=== PATIENT | male | born 1955 | race Caucasian/White ===

== ENCOUNTER 2017-09-22 13:00 | Inpatient (IN) ==
[2017-09-22 16:21] LABS: Basophils # (Auto) 0 K/mcL (0.0-0.3); Basophils % (Auto) 0.2 % (0.0-2.0); Eosinophils # (Auto) 0.3 K/mcL (0.0-0.7); Eosinophils % (Auto) 2.9 % (0.0-7.0); Granulocytes % (Auto) 56.4 % (38.0-78.0); Lymphocytes # (Auto) 2.9 K/mcL (1.5-4.8); Mean Cell Volume 92.8 fL (80.0-100.0); Mean Corpuscular HGB Conc 34.4 g/dL (31.0-36.0); Mean Corpuscular Hemoglobin 31.9 pg (26.0-34.0); Monocytes # (Auto) 0.7 K/mcL (0.1-0.9); Monocytes % (Auto) 7.5 % (1.0-12.0); Platelet Count 217 K/mcL (140-440); RBC 4.23 M/mcL (4.50-5.90); Red Cell Distribution Width 14.7 % (11.5-14.5)
[2017-09-22 16:41] LABS: Blood Urea Nitrogen 26 mg/dl (8-23)
[2017-09-22 17:16] LABS: Appearance,Urine CLEAR; Bilirubin,Urine NEG (NEG); Color,Urine YELLOW; Glucose,Urine (UA) NEGATIVE (NEG); Leukocyte Esterase,Urine NEG /uL (NEG); Protein,Urine NEG (NEG); Urine Blood NEG mg/dL (<0.03); Urobilinogen,Urine NEG (NEG)
[2017-09-30] MEDS ORDERED: 0.9 % SODIUM CHLORIDE 9 ML, KETOROLAC 30 MG, ROPIVACAINE HCL/PF 49.5 ML, EPINEPHrine 0.... IJ SCH (07:00)
[2017-09-30] MEDS ORDERED: CELECOXIB 200 MG CAPSULE PO SCH (07:00)
[2017-09-30] MEDS ORDERED: ceFAZolin 1 GM VIAL IV SCH (07:00)
[2017-09-30] MEDS ORDERED: oxyCODONE 10 MG TAB.ER.12H PO SCH (07:00)
[2017-09-30] MEDS ORDERED: PREGABALIN 75 MG CAPSULE PO SCH (07:00)
[2017-09-30] MEDS ORDERED: TRANEXAMIC ACID 1,000 MG/10 ML VIAL IV ONE ×2 (11:20→13:02)
[2017-09-30] MEDS ORDERED: ROPIVACAINE HCL/PF 20 ML VIAL IJ ONE (11:20)
[2017-09-30] MEDS ORDERED: MIDAZOLAM 2 MG/2 ML VIAL IV ONE (11:20)
[2017-09-30] MEDS ORDERED: PROPOFOL 200 MG/20 ML VIAL IV ONE (11:20)
[2017-09-30] MEDS ORDERED: ONDANSETRON 4 MG/2 ML VIAL IV ONE (11:20)
[2017-09-30] MEDS ORDERED: GLYCOPYRROLATE 0.2 MG/ML VIAL IV ONE (11:20)
[2017-09-30] MEDS ORDERED: ePHEDrine 50 MG/ML AMPUL IV ONE (11:20)
[2017-09-30] MEDS ORDERED: KETAMINE 100 MG/ML ML IV ONE (11:20)
[2017-09-30] MEDS ORDERED: DEXAMETHASONE 10 MG/ML VIAL IV ONE (11:20)
[2017-09-30] MEDS ORDERED: LIDOCAINE HCL/PF 100 MG/5 ML SYRINGE IV ONE (11:20)
[2017-09-30] MEDS ORDERED: PHENYLEPHRINE 10 MG/ML VIAL IV ONE (11:20)
[2017-09-30] MEDS ORDERED: BISACODYL 10 MG SUPP.RECT PR PRN (13:02)
[2017-09-30] MEDS ORDERED: MAGNESIUM HYDROXIDE 30 ML ORAL.SUSP PO PRN (13:02)
[2017-09-30] MEDS ORDERED: FLEETS ADULT ENEMA PR PRN (13:02)
[2017-09-30] MEDS ORDERED: HYDROmorphone 2 MG/ML VIAL IV PRN (13:02)
[2017-09-30] MEDS ORDERED: ONDANSETRON 4 MG/2 ML VIAL IV PRN (13:02)
[2017-09-30] MEDS ORDERED: POLYETHYLENE GLYCOL 3350 17 GM PACKET PO PRN (13:02)
[2017-09-30] MEDS ORDERED: BENZOCAINE/MENTHOL 1 LOZENGE PO PRN (13:02)
--- NOTE | 2017-09-30 13:02 | Brief Operative Note ---
Date of procedure: 09/30/17 Pre-op diagnosis: R knee DJD Post-op diagnosis: same Procedure: Right robotic assisted total knee arthroplasty Grafts/Implants: Yes ([place] Triathlon CR 5 femur, 5 tibia, 9mm insert, 36 patella) Anesthesia: spinal, GLMA Findings: arthritis Complications: none Surgeon: Brenden Mario Supply Chain Procurement Manager: Caden Epps Estimated blood loss (cc): 30 Specimens Removed/Pathology: none sent Condition: stable Disposition: PACU
[2017-09-30] MEDS ORDERED: CARISOPRODOL 350 MG TABLET PO PRN (13:06)
--- NOTE | 2017-09-30 14:00 | XRay Report ---
CLINICAL INFORMATION: Postop total knee replacement COMPARISON: None. FINDINGS: Total knee prostheses is anatomically aligned. No osseous abnormality. Periarticular gas and soft tissue swelling noted. Old ununited fracture through the tibial tuberosity noted IMPRESSION: Negative Interpreted and Authenticated by: Alphonse Campoevrde 09/30/17
--- NOTE | 2017-09-30 14:09 | Operative Note ---
DATE OF OPERATION: 09/30/2017 PREOPERATIVE DIAGNOSIS: Right knee advanced osteoarthritis. POSTOPERATIVE DIAGNOSIS: Right knee advanced osteoarthritis. PROCEDURE PERFORMED: Right robotic-assisted total knee arthroplasty placing a [place] Triathlon size 5 cruciate retaining femoral component, size 5 tibial baseplate, 9 mm X3 tibial insert with a 36 mm patellar button. SURGEON: Brenden Mario MD SERVER SERVICE ASSISTANT: Grayson Epps PA-C ANESTHESIA: Spinal plus general. DRAINS: None. SPECIMENS: Bone cuts, which were discarded. BLOOD LOSS: Minimal. POSTOPERATIVE CONDITION: Stable. INDICATIONS FOR SURGERY: A 62-year-old male with knee pain. Radiographs showed on the standing notch view complete obliteration of the lateral joint space. FINDINGS AT SURGERY: He did have patellofemoral as well as lateral compartment wear. PROCEDURE IN DETAIL: The patient had been seen preoperatively. Informed consent had been obtained after discussion of risks, benefits of surgery. Risks including, but not limited to, bleeding; infection; injury to nerves, blood vessels other surrounding structures; anesthetic risks; incomplete or no resolution of symptoms; stiffness; swelling; pain; DVT and pulmonary embolus risks; and the possibility of needing further revision surgery. He understood these risks and wished to proceed. Correct operative site was marked and the patient was taken to the operating room after spinal anesthesia was given. LMA general was done and the right lower extremity was carefully prepped and draped in normal sterile fashion. A timeout was performed verifying patient name, operative site, and plan. Esmarch was used to exsanguinate the extremity and tourniquet was inflated. A midline incision was made with scalpel through skin and subcutaneous tissue. IrriSept was irrigated and then a medial parapatellar arthrotomy made. Subperiosteal exposure was done of the anterior medial tibia. Checkpoints were placed in the tibia and the femur. Two stab incisions were made over the femur and two over the tibia and bicortical pins placed and the arrays connected. Hip center of rotation was checked as well as medial and lateral malleoli with the green probe. Our femoral and tibial checkpoints were double checked and then a blue probe was used to do our mapping. We then removed any osteophytes and then checked our flexion, extension gaps. We adjusted the implant to try and get us at about 17 mm gaps medial and lateral in flexion and extension. We were within 1 mm of this so we went ahead and used the robotic arm to perform our bone cuts. After this is completed, the tibia was rotated externally as bone coverage would allow, pinned into place. Boss reamer and keel punch were used to prepare. We then elevated the femur and removed posterior osteophytes with a curved osteotome. Femoral trial was impacted and pinned and then a 9 insert trial was placed. This was very snug. We then prepared the patella freehand resecting and then medializing 36 as bone coverage would allow and then holes were drilled. The trial was placed, lateral facetectomy performed. We checked our patellar tracking, which was good, so we went ahead and removed trial implants while definitive implants were opened. Antibiotic cement was mixed while we irrigated the joint with IrriSept, after a minute pulse lavaged copiously with saline. CO2 gun was used to clean and dry cancellous bone surfaces and then we cemented the tibia followed by femur. A 9 insert trial was placed and then the knee was taken into extension and the patellar button cemented. We removed our checkpoints and then irrigated the joint with IrriSept. We removed our pins after verifying about 3 degrees short of full extension. We then injected pain cocktail into the pericapsular subcutaneous tissues. We then flexed the knee up, removed the insert trial after cement fully hardened and injected the posterior capsule. We irrigated with IrriSept again and impacted the definitive 9 mm insert. We then pulse lavaged copiously with saline. The knee was taken in about 45 degrees flexion. Interrupted #2 FiberWire [id number] were used around the superior quadrant of the patella, interrupted #1 Vicryl [id number] around the inferior quadrant, running #1 Vicryl for patellar tendon and quad tendon. Final IrriSept irrigation was done and then final saline, 2-0 Monocryl and rosalinda for skin. Xeroform sterile dressings were applied. Tourniquet was released. The patient was awakened, extubated, and transferred to recovery in stable condition. DARCIE:mehnaz Job ID: [id number] Doc ID: [id number] Brenden aMrio MD
[2017-09-30] MEDS: 0.9 % SODIUM CHLORIDE 1,000 ML IV SCH (14:28)
[2017-09-30] MEDS: 0.9 % SODIUM CHLORIDE 10 ML SYRINGE IV SCH ×2 (14:30→21:08)
[2017-09-30] MEDS: KETOROLAC 30 MG/ML VIAL IV SCH ×2 (17:10→23:09)
[2017-09-30] MEDS: oxyCODONE HCL 5 MG TABLET PO PRN ×2 (18:35→23:08)
[2017-09-30] MEDS ORDERED: POTASSIUM CHLORIDE 10 MEQ TABLET PO SCH (21:00)
[2017-09-30] MEDS ORDERED: FAMOTIDINE 20 MG TABLET PO SCH (21:00)
[2017-09-30] MEDS ORDERED: CHLORTHALIDONE 25 MG TABLET PO SCH (21:00)
[2017-09-30] MEDS ORDERED: LISINOPRIL 20 MG TABLET PO SCH (21:00)
[2017-09-30] MEDS ORDERED: SENNOSIDES 1 TABLET PO SCH (21:00)
[2017-09-30] MEDS ORDERED: ATORVASTATIN 20 MG TABLET PO SCH (21:00)
[2017-09-30] MEDS ORDERED: ALLOPURINOL 100 MG TABLET PO SCH (21:00)
[2017-09-30] MEDS: DOCUSATE SODIUM 100 MG CAPSULE PO SCH (21:05)
[2017-09-30] MEDS: ASPIRIN 325 MG ENTERIC COATED TABLET PO SCH (21:07)
[2017-09-30] MEDS: ceFAZolin 1 GM VIAL IV SCH (21:07)
[2017-10-01] MEDS: oxyCODONE HCL 5 MG TABLET PO PRN ×2 (03:00→06:42)
[2017-10-01] MEDS: KETOROLAC 30 MG/ML VIAL IV SCH (05:59)
[2017-10-01] MEDS: ceFAZolin 1 GM VIAL IV SCH (05:59)
[2017-10-01] MEDS: 0.9 % SODIUM CHLORIDE 10 ML SYRINGE IV SCH (05:59)
--- NOTE | 2017-10-01 07:45 | Discharge Summary ---
Providers - Providers Patient information: Note initiated : 10/01/17 at 7:43 am Service Date, if different from initiated Date: [] Patient: Manas Page 62 y/o M admitted on 09/30/17 for Right Total Knee Arthroplasty Abhijit. Chief Complaint: [] Discharge date: 10/01/17 Hospitalization Hospital course: Pt was admitted for a total knee arthroplasty. Pt was admitted on the day of the procedure and discharged on post-op day 1. Pt will take ASA for DVT prophylaxis. Will attend out-pt PT. f/u at [facility] in 2 weeks. Discharge diagnosis: L knee OA Exam - Exam Clean and dry: Yes Weight bearing status: as tolerated Ortho Discharge - TKA - Patient Instructions Diet: Regular Diet Activity: activity as tolerated Total Knee Protocol: For Total Knee: Start ROM JOJO with stationary bike or rocking chair. Work on gaining full extension of knee. Posterior dislocation precautions provided. Hip abductor strengthening and gait training instructions provided. Apply Cryocuff as instructed. Dressing Care: May shower in 2 days - Follow Up Plan Follow Up Appointments: Caden Epps PA-C [Physician Classification Officer] - 10/15/17 1:40 pm Disposition: Home, Self-Care Prognosis: Good Rehab Potential: Good Overall status at discharge: patient is progressing back to baseline - Orders For Discharge Prescriptions: Aspirin [Ecotrin] 325 mg PO BID #30 tab.ec Pending Studies Resuscitation Status Full Code Diet Consistent Carbohydrate Diet Start ThuSep 30 1303 Allopurinol (Zyloprim) 200 mg PO [facility] Last Admin: 09/30/17 21:07 Dose: 200 mg Aspirin (Ecotrin) 325 mg PO BID [facility] Last Admin: 09/30/17 21:07 Dose: 325 mg Atorvastatin Calcium (Lipitor) 20 mg PO [facility] Last Admin: 09/30/17 21:07 Dose: 20 mg Carisoprodol (Soma) 700 mg PO HSP PRN PRN Reason: Muscle Spasm Last Admin: 09/30/17 23:08 Dose: 700 mg Chlorthalidone (Hygroton) 25 mg PO [facility] Last Admin: 09/30/17 21:06 Dose: 25 mg Docusate Sodium (Colace) 100 mg PO BID [facility] Last Admin: 09/30/17 21:05 Dose: 100 mg Famotidine (Pepcid) 40 mg PO [facility] Last Admin: 09/30/17 21:07 Dose: 40 mg Hydromorphone HCl (Dilaudid) 0 mg IV Q2HP PRN PRN Reason: PAIN LEVEL > 6 Last Admin: 09/30/17 14:29 Dose: 1 mg Sodium Chloride (Sodium Chloride 0.9%) 1,000 mls @ 100 mls/hr IV .Q10H [facility] Last Admin: 10/01/17 00:00 Dose: Not Given Admin: 09/30/17 14:28 Dose: 100 mls/hr Ketorolac Tromethamine (Toradol) 30 mg IV Q6 [facility] Stop: 10/02/17 12:01 Last Admin: 10/01/17 05:59 Dose: 30 mg Admin: 09/30/17 23:09 Dose: 30 mg Admin: 09/30/17 17:10 Dose: 30 mg Lisinopril (Zestril) 20 mg PO [facility] Last Admin: 09/30/17 21:06 Dose: 20 mg Oxycodone HCl (Roxicodone) 0 mg PO Q4HP PRN PRN Reason: PAIN LEVEL 3-6 Last Admin: 10/01/17 06:42 Dose: 10 mg Admin: 10/01/17 03:00 Dose: 10 mg Admin: 09/30/17 18:35 Dose: 10 mg Potassium Chloride (Kdur) 10 meq PO [facility] Last Admin: 09/30/17 21:06 Dose: 10 meq Senna (Senokot) 2 tab PO [facility] Last Admin: 09/30/17 21:07 Dose: 2 tab Sodium Chloride (Saline Flush) 10 ml IV Q8 [facility] Last Admin: 10/01/17 05:59 Dose: Not Given Admin: 09/30/17 21:08 Dose: Not Given Admin: 09/30/17 14:30 Dose: Not Given Shift Summary 10/01/17 03:34 Shift Summary by Christian Connelly VSSy on RA. Asymptomatic HOTN t/o night. Up w/SBA, FWW and gait belt. Very steady on feet. Ambulated in halls past nurses station x2 last night. Would like to work w/PT and try stairs today. IV to left FA running NS @ 100mL/hr. Voiding per urinal and BR. Last PVR @ 0300 134mL. Dressing to right knee, CDI. Uses cryocuff. Foot pumps in place. Pain is well managed w/ scheduled Toradol and 10mg Oxycodone. Tolerating diet. Pleasant and cooperative w/cares. Hoping to discharge today. Initialized on 10/01/17 03:34 - END OF NOTE
[2017-10-01] MEDS: DOCUSATE SODIUM 100 MG CAPSULE PO SCH (07:58)
[2017-10-01] MEDS: ASPIRIN 325 MG ENTERIC COATED TABLET PO SCH (07:58)
[2017-10-01] MEDS ORDERED: FLUoxetine HCL 20 MG CAPSULE PO SCH (09:00)
[2017-10-01] MEDS ORDERED: VELPATASVIR PO SCH (09:00)
[2017-10-01] MEDS ORDERED: SOFOSBUVIR PO SCH (09:00)
[2017-10-01] MEDS: 0.9 % SODIUM CHLORIDE 1,000 ML IV SCH ×2 (10:19)
== END 2017-10-01 10:30 | disposition home or self-care (01) | DRG 470 ==
LOC: MEDSUR 09-30 07:47
PROVIDERS: ADMIT Orthopaedic Surgery; ATTEND Orthopaedic Surgery

== ENCOUNTER 2017-10-20 19:12 | Inpatient (IN) ==
[2017-10-20] MEDS ORDERED: 0.9 % SODIUM CHLORIDE 1,000 ML IV ONE ×2 (19:55→21:51)
--- NOTE | 2017-10-20 20:02 | Emergency Department Note ---
Skin/Abscess/FB HPI - General Chief complaint: Skin/Abscess/Foreign Body Stated complaint: Post surgical infection Time Seen by Provider: 10/20/17 19:25 Source: patient Mode of arrival: ambulatory Limitations: no limitations - History of Present Illness HPI Narrative: 62-year-old male presents with feeling poorly and feverish since discovering he has an infection of his postop knee. He had a knee replacement on the first of this month and noticed in the last couple of days it has gotten red. He saw his primary care provider in [place] who called Dr. Mario who did his surgery. They gave him a shot yesterday and he has been taking Keflex today. He states he is feeling worse today and feels feverish. He states that the swelling and redness is not necessarily worse but may be on the lateral aspect. He states it is painful. When he is triaged his temp was 98.7 but now its 100.2. He is also anxious because he does not know what to do about his infection. He has been taking the antibiotics as directed. He is not diabetic. - Related Data Home Medications Medication Instructions Recorded Confirmed Allopurinol [Zyloprim] 200 mg PO HS 09/22/17 10/20/17 Atorvastatin [Lipitor] 20 mg PO HS 09/22/17 10/20/17 Carisoprodol [Soma] 700 mg PO HSP PRN 09/22/17 10/20/17 Chlorthalidone [Hygroton] 25 mg PO HS 09/22/17 10/20/17 FLUoxetine HCL [Prozac] 20 mg PO DAILY 09/22/17 10/20/17 Famotidine [Pepcid] 40 mg PO HS 09/22/17 10/20/17 Hydrocodone/APAP 7.5/325Mg [Dinosaur 1 tab PO Q6-8HP PRN 09/22/17 10/20/17 7.5-325Mg] Lisinopril [Zestril] 20 mg PO HS 09/22/17 10/20/17 Potassium Chloride [Klor-Con 10] 10 meq PO HS 09/22/17 10/20/17 Sofosbuvir/Velpatasvir [Epclusa 1 tab PO DAILY 09/22/17 10/20/17 400 mg-100 mg Tablet] Previous Rx's Medication Instructions Recorded Aspirin [Ecotrin] 325 mg PO BID #30 tab.ec 10/01/17 Allergies Allergy/AdvReac Type Severity Reaction Status Date / Time Penicillins AdvReac Mild Vomiting Verified 09/22/17 13:26 Review of Systems All systems ED: reviewed and negative except as stated. Past Medical History - Past Medical History Medical history: Reports: hypertension Psychiatric history: Reports: no psych history Surgical history ED: Reports: knee replacement (Right knee replacement on 09/30/17 ) Family history: Reports: non-contributory - Social History smoking status: Former smoker Physical Exam Limitations: no limitations General appearance: alert, in no apparent distress Head: atraumatic Eye: Present: normal appearance. Absent: conjunctival injection Neck: Present: normal inspection, full ROM Chest: Present: normal inspection, symmetric chest wall rise Respiratory: Present: normal lung sounds bilaterally Cardiovascular: Present: tachycardia, normal heart sounds Abdominal: Present: soft, normal bowel sounds. Absent: tenderness Extremities: Present: other (Right knee shows erythema measuring 20 x 25 cm. Small effusion. Tender to palpation. Very warm to touch. There is serous drainage from the incision. Steri-Strips are still in place but look dirty) Neurological: Present: alert, oriented X3 Psychiatric: Present: normal affect, normal mood Skin: Present: warm, dry, intact Course - Reevaluation(s) Reevaluation #1: Elevated white count of 14,000. Patient continues to have a fever of 100.9. Patient was given [address] Montesinos was given report and will continue care of this patient and consult with Dr. Mario. Vital Signs Temperature 98.1 F 10/20/17 19:12 Pulse Rate 84 10/20/17 19:12 Respiratory Rate 18 10/20/17 19:12 Blood Pressure 105/72 10/20/17 19:12 Pulse Oximetry (%) 99 10/20/17 19:12 Temperature 100.9 F H 10/20/17 21:36 Pulse Rate 103 H 10/20/17 21:46 Respiratory Rate 18 10/20/17 19:12 Blood Pressure 125/95 10/20/17 21:46 Pulse Oximetry (%) 95 10/20/17 21:46 Skin/Abscess/Foreign Body - Lab Data Lab results reviewed: Yes I reviewed the patient's lab results. Result diagrams: 10/20/17 20:04 10/20/17 20:04 Lab Results 10/20/17 10/20/17 Range/Units 20:04 20:04 WBC 14.7 H (4.5-11.0) K/mcL RBC 4.65 (4.50-5.90) M/mcL Hgb 13.9 (13.5-16.5) g/dL Hct 41.3 (41.0-55.0) % MCV 88.7 (80.0-100.0) fL MCH 29.9 (26.0-34.0) pg MCHC 33.7 (31.0-36.0) g/dL RDW 13.8 (11.5-14.5) % Plt Count 268 (140-440) K/mcL MPV 8.2 (7.4-10.4) fL Gran % 75.8 (38.0-78.0) % Lymph % (Auto) 14.2 L (15.5-49.0) % [place] % (Auto) 8.5 (1.0-12.0) % Eos % (Auto) 0.7 (0.0-7.0) % Baso % (Auto) 0.8 (0.0-2.0) % Gran # 11.2 H (1.8-8.0) K/mcL Lymph # (Auto) 2.1 (1.5-4.8) K/mcL [place] # (Auto) 1.2 H (0.1-0.9) K/mcL Eos # (Auto) 0.1 (0.0-0.7) K/mcL Baso # (Auto) 0.1 (0.0-0.3) K/mcL Sodium 138 (133-145) mmol/L Potassium 3.6 (3.3-5.1) mmol/L Chloride 96 (96-108) mmol/L Carbon Dioxide 26 (22-30) mmol/L Anion Gap 16.0 (8-16) BUN 18 (8-23) mg/dl Creatinine 1.5 H (0.7-1.2) mg/dl GFR Calculation 49 Glucose 100 (70-105) mg/dL Calcium 9.6 (8.6-10.4) mg/dl Total Bilirubin 0.4 (0.0-1.0) mg/dL AST 22 (0-37) U/l ALT 23 (0-40) U/l Alkaline Phosphatase 83 (39-117) U/L C-Reactive Protein 6.5 H (0.0-0.8) mg/dl Total Protein 8.6 H (5.9-8.4) gm/dL Albumin 4.4 (3.2-5.2) gm/dL Globulin 4.2 H (2.2-3.7) gm/dL Albumin/Globulin Ratio 1.0 (1.0-2.3) Disposition Pt seen by STRUCTURED CABLING TECHNICIAN/PA only: No Disposition: Still a Patient Referrals: Hank Garcia, PABereniceC [Primary Care Provider] -
[2017-10-20] MEDS ORDERED: LEVOFLOXACIN 500 MG/100 ML BAG IV ONE (20:17)
[2017-10-20] MEDS ORDERED: ACETAMINOPHEN 325 MG TABLET PO ONE (20:39)
[2017-10-20 21:22] LABS: Basophils # (Auto) 0.1 K/mcL (0.0-0.3); Basophils % (Auto) 0.8 % (0.0-2.0); Eosinophils # (Auto) 0.1 K/mcL (0.0-0.7); Eosinophils % (Auto) 0.7 % (0.0-7.0); Granulocytes % (Auto) 75.8 % (38.0-78.0); Lymphocytes # (Auto) 2.1 K/mcL (1.5-4.8); Lymphocytes % (Auto) 14.2 % (15.5-49.0); Mean Cell Volume 88.7 fL (80.0-100.0); Mean Corpuscular HGB Conc 33.7 g/dL (31.0-36.0); Mean Corpuscular Hemoglobin 29.9 pg (26.0-34.0); Monocytes # (Auto) 1.2 K/mcL (0.1-0.9); Monocytes % (Auto) 8.5 % (1.0-12.0); Platelet Count 268 K/mcL (140-440); RBC 4.65 M/mcL (4.50-5.90); Red Cell Distribution Width 13.8 % (11.5-14.5)
[2017-10-20 21:39] LABS: ALT/SGPT 23 U/l (0-40); Albumin 4.4 gm/dL (3.2-5.2); Alkaline Phosphatase 83 U/L (39-117); Blood Urea Nitrogen 18 mg/dl (8-23); C-Reactive Protein 6.5 mg/dl (0.0-0.8)
[2017-10-20 22:00] LABS: Erythrocyte Sedimentation Rate 54 mm/hr (0-15)
--- NOTE | 2017-10-20 23:16 | Emergency Department Note ---
General Adult HPI - General Chief complaint: Skin/Abscess/Foreign Body Stated complaint: Post surgical infection Time Seen by Provider: 10/20/17 19:25 Source: patient Mode of arrival: ambulatory Limitations: no limitations - History of Present Illness HPI Narrative: I saw this patient with Amie Palm PA-C and agree with her evaluation management documentation. Please see her note. I initially evaluated the patient with her and discussed his care with her. However his workup was not done by shift change and so patient was handed off to me for full care then Basically the patient had a right knee replacement at the beginning of the month and went home after an uncomplicated recovery. Over the last several days he developed red hot swollen knee and today his neighbor may have come to the hospital-in fact drove him personally to the hospital. He has had a fever and chills. Knee is painful swollen and draining serous fluid. He is on Keflex from his primary care - Related Data Home Medications Medication Instructions Recorded Confirmed Allopurinol [Zyloprim] 200 mg PO HS 09/22/17 10/20/17 Atorvastatin [Lipitor] 20 mg PO HS 09/22/17 10/20/17 Carisoprodol [Soma] 700 mg PO HSP PRN 09/22/17 10/20/17 Chlorthalidone [Hygroton] 25 mg PO HS 09/22/17 10/20/17 FLUoxetine HCL [Prozac] 20 mg PO DAILY 09/22/17 10/20/17 Famotidine [Pepcid] 40 mg PO HS 09/22/17 10/20/17 Hydrocodone/APAP 7.5/325Mg [[place] 1 tab PO Q6-8HP PRN 09/22/17 10/20/17 7.5-325Mg] Lisinopril [Zestril] 20 mg PO HS 09/22/17 10/20/17 Potassium Chloride [Klor-Con 10] 10 meq PO HS 09/22/17 10/20/17 Previous Rx's Medication Instructions Recorded Aspirin [Ecotrin] 325 mg PO BID #30 tab.ec 10/01/17 Allergies Allergy/AdvReac Type Severity Reaction Status Date / Time Penicillins AdvReac Mild Vomiting Verified 09/22/17 13:26 Past Medical History - Past Medical History Medical history: Reports: hypertension Psychiatric history: Reports: no psych history Surgical history ED: Reports: knee replacement (Right knee replacement on 09/30/17 ) - Social History smoking status: Former smoker Physical Exam Exam of the right knee shows a red area around the wound site with serous drainage coming from the incision middle. Steri-Strips are still in place. Pushing on the incision actually releases more purulent fluid and this is cultured. He is able to move that knee joint without difficulty Limitations: no limitations General appearance: alert, in no apparent distress Course Vital Signs Temperature 98.1 F 10/20/17 19:12 Pulse Rate 84 10/20/17 19:12 Respiratory Rate 18 10/20/17 19:12 Blood Pressure 105/72 10/20/17 19:12 Pulse Oximetry (%) 99 10/20/17 19:12 Temperature 98.2 F 10/21/17 04:00 Pulse Rate 75 10/21/17 04:00 Respiratory Rate 20 10/21/17 04:00 Blood Pressure 120/79 10/21/17 04:00 Pulse Oximetry (%) 94 10/21/17 04:00 Procedures - Joint Aspiration/Injection Joint Aspiration/Injection 1 Consent Obtained: verbal consent Time Out Performed: Yes Side of body: right Joint Aspirated: knee Ultrasound Guidance: No Skin Prep: other (Alcohol) Local Anesthetic: lidocaine 1% Amount of anesthesia used (mL): 2 Needle Size Used: 22G Fluid Obtained: turbid Total Fluid Obtained (mls): 20 Patient Tolerated Procedure: well Complications: none Additional Comments: Per Dr. Mario's recommendations. Aspirated prostatic joint from a medial inferior angle with spinal needle. Obtained 20 mL turbid brown fluid-reddish. Sent for culture and Gram stain Medical Decision Making - Medical Records Medical records reviewed: Yes I reviewed the patient's medical records. - Lab Data Lab results reviewed: Yes I reviewed the patient's lab results. Result diagrams: 10/20/17 20:04 10/20/17 20:04 Lab Results 10/20/17 10/20/17 10/20/17 Range/Units 20:04 20:04 20:04 WBC 14.7 H (4.5-11.0) K/mcL RBC 4.65 (4.50-5.90) M/mcL Hgb 13.9 (13.5-16.5) g/dL Hct 41.3 (41.0-55.0) % MCV 88.7 (80.0-100.0) fL MCH 29.9 (26.0-34.0) pg MCHC 33.7 (31.0-36.0) g/dL RDW 13.8 (11.5-14.5) % Plt Count 268 (140-440) K/mcL MPV 8.2 (7.4-10.4) fL Gran % 75.8 (38.0-78.0) % Lymph % (Auto) 14.2 L (15.5-49.0) % [place] % (Auto) 8.5 (1.0-12.0) % Eos % (Auto) 0.7 (0.0-7.0) % Baso % (Auto) 0.8 (0.0-2.0) % Gran # 11.2 H (1.8-8.0) K/mcL Lymph # (Auto) 2.1 (1.5-4.8) K/mcL [place] # (Auto) 1.2 H (0.1-0.9) K/mcL Eos # (Auto) 0.1 (0.0-0.7) K/mcL Baso # (Auto) 0.1 (0.0-0.3) K/mcL ESR 54 H (0-15) mm/hr VBG Lactic Acid 1.0 (0.5-2.2) mmol/L Sodium 138 (133-145) mmol/L Potassium 3.6 (3.3-5.1) mmol/L Chloride 96 (96-108) mmol/L Carbon Dioxide 26 (22-30) mmol/L Anion Gap 16.0 (8-16) BUN 18 (8-23) mg/dl Creatinine 1.5 H (0.7-1.2) mg/dl GFR Calculation 49 Glucose 100 (70-105) mg/dL Calcium 9.6 (8.6-10.4) mg/dl Total Bilirubin 0.4 (0.0-1.0) mg/dL AST 22 (0-37) U/l ALT 23 (0-40) U/l Alkaline Phosphatase 83 (39-117) U/L C-Reactive Protein 6.5 H (0.0-0.8) mg/dl Total Protein 8.6 H (5.9-8.4) gm/dL Albumin 4.4 (3.2-5.2) gm/dL Globulin 4.2 H (2.2-3.7) gm/dL Albumin/Globulin Ratio 1.0 (1.0-2.3) - Radiology Data Radiology results reviewed: Yes I reviewed the patient's radiology results. X-ray shows knee prosthetic in good placement Disposition Pt seen by CARDIOLOGY SPECIALIST/PA only: No Clinical Impression: Infected prosthetic knee joint Qualifiers: Encounter type: initial encounter Qualified Code(s): T84.59XA - Infection and inflammatory reaction due to other internal joint prosthesis, initial encounter Summary: Discussed findings with Dr. Mario who advised me to start vancomycin and bring patient into the hospital. We previously started Levaquin Per recommendations kept him n.p.o. for possible operative treatment and wrote holding orders with pain management, IV fluids. I continue his allopurinol because we do not want a gout flare from stopping this. Dr. Arias the hospitalist was consulted as well Patient was admitted for an infected prosthetic right knee Disposition: Xfer As Inpt ([facility]) Condition: Serious
[2017-10-20] MEDS ORDERED: ONDANSETRON 4 MG/2 ML VIAL IV PRN (23:58)
[2017-10-21] MEDS ORDERED: VANCOMYCIN PER PHARMACY IV ONE (00:02)
[2017-10-21] MEDS ORDERED: VANCOMYCIN 1,000 MG in 0.9 % SODIUM CHLORIDE 250 ML IV ONE (00:02)
[2017-10-21] MEDS ORDERED: HYDROCODONE/APAP 7.5/325MG TABLET PO ONE (00:03)
[2017-10-21] MEDS: 0.9 % SODIUM CHLORIDE 1,000 ML IV SCH ×3 (00:40→21:30)
[2017-10-21] MEDS: FLUoxetine HCL 20 MG CAPSULE PO SCH (07:12)
[2017-10-21 08:16] LABS: Total Cell Count Body Fld 100
[2017-10-21 08:18] LABS: Appearance, Body Fluid CLEAR; Color, Body Fluid DARK YELLOW; Nucleated Cells,Body Fld 772 /cumm
--- NOTE | 2017-10-21 08:21 | XRay Report ---
HISTORY: Knee pain and erythema and drainage from the surgical site following recent knee replacement FINDINGS: There is a large amount soft tissue swelling anterior to the knee. Postsurgical gas which was seen around the knee on the postoperative x-ray done on 09/30/17 has resolved. There is no evidence of residual gas in the soft tissues at this time. There may be a small suprapatellar joint effusion. The alignment at the patella with the femur has changed. The inferior margin is angulated ventrally. The prosthesis otherwise appears normal and there is no reabsorption of bone around the hardware. The fat in the infrapatellar fat pad appears infiltrated. IMPRESSION: Significant cellulitis along the anterior border of the knee which may be extending into the infrapatellar fat pad Mild malalignment of the femur and patella which raises the possibility of disruption of the infrapatellar tendon Interpreted and Authenticated by: Ruben Pearl 10/21/17
[2017-10-21 08:25] LABS: Mean Cell Volume 89.8 fL (80.0-100.0); Mean Corpuscular HGB Conc 34.2 g/dL (31.0-36.0); Mean Corpuscular Hemoglobin 30.8 pg (26.0-34.0); Platelet Count 205 K/mcL (140-440); RBC 3.49 M/mcL (4.50-5.90); Red Cell Distribution Width 14.4 % (11.5-14.5)
[2017-10-21 08:45] LABS: Lymphocytes % 24 % (15-49); Monocytes % (Manual) 10 % (1-12); Platelet Estimate NORMAL (NORMAL); RBC Morphology NORMAL (NORMAL); Segmented Neutrophils % 66 % (38-78)
[2017-10-21] MEDS ORDERED: [UNRECOGNIZED DRUG - OTHER] PO SCH (09:00)
[2017-10-21] MEDS ORDERED: VELPATASVIR PO SCH (09:00)
[2017-10-21] MEDS ORDERED: SOFOSBUVIR PO SCH (09:00)
--- NOTE | 2017-10-21 10:43 | Internal Medicine Consult Note ---
Medical - CN: HPI - Data of Consult Consult date: 10/21/17 Requesting Physician: Brenden Mario Primary Care Provider: Hank Garcia Family Provider: [place] Martinez - Consult Narrative Reason for consult: Medical management of chr medical issues. History of present illness: Mr. Page is a 62 year old M with h/o recent Right TKA by Dr Mario approx 3 weeks ago. The patient was participating in PT and over the last few days he had noted increased erythema and swelling in the right knee. There has been increased pain, and decreased activity. The patient was started on po Keflex as outpatient, one injection given? the patients condition continued to worsen, yesterday he had fever chills, weakness fatigue, and was brought to the ER by his neighbor for further evaluation. The patient was admitted to ortho service with concern for post operative septic joint. Medicine is consulted for medical management of chr medical issues. The patient has h/o cad had CA in the 1989, he has not had any chest pain, swelling in the legs, dizziness of palpiations. He has h/o HTN/ HLD which are being managed with medications He has h/o gout, on allopurinol for same. The patient denies any active medical concerns at this time. CC: Brenden Mario Review of systems: CONSTITUTIONAL: No weight loss, Present - fever, chills, weakness or fatigue. HEENT: Eyes: No visual loss, blurred vision, double vision or yellow sclerae. Ears, Nose, Throat: No hearing loss, sneezing, congestion, runny nose or sore throat. SKIN: No rash or itching. CARDIOVASCULAR: No chest pain, chest pressure or chest discomfort. No palpitations or edema. RESPIRATORY: No shortness of breath, cough or sputum. GASTROINTESTINAL: No nausea, vomiting or diarrhea or constipation. No abdominal pain or blood in stools No Pati. GENITOURINARY: Denies Burning on urination. Blood in urine, or foul smelling urine NEUROLOGICAL: No headache, dizziness, syncope, paralysis, tremors, numbness or tingling in the extremities. No change in bowel or bladder control. MUSCULOSKELETAL: No muscle, back pain, joint pain or stiffness., RIght knee swollen, erythematous HEMATOLOGIC: No bleeding or bruising. No enlarged nodes PSYCHIATRIC: No depression or anxiety. ENDOCRINOLOGIC: No reports of sweating, cold or heat intolerance. No polyuria or polydipsia. ALLERGIES: No hives, eczema or rhinitis. Skin: No rash, no jaundice, cyanosis or pallor. Medical - CN: PMH Medical history: HTN Gout HLD h/o CAD H/o HEP C Surgical history: Right knee replacement december 01 2017 Family history: reviewed and not pertinent Social history: denies activ smoking, ex tobacco user no active etoh or recreatioal drugs. Medical - CN: Meds Home Medications Medication Instructions Recorded Confirmed Type Allopurinol [Zyloprim] 200 mg PO HS 09/22/17 10/20/17 History Atorvastatin [Lipitor] 20 mg PO HS 09/22/17 10/20/17 History Carisoprodol [Soma] 700 mg PO HSP PRN 09/22/17 10/20/17 History Chlorthalidone [Hygroton] 25 mg PO HS 09/22/17 10/20/17 History FLUoxetine HCL [Prozac] 20 mg PO DAILY 09/22/17 10/20/17 History Famotidine [Pepcid] 40 mg PO HS 09/22/17 10/20/17 History Hydrocodone/APAP 7.5/325Mg [[place] 1 tab PO Q6-8HP PRN 09/22/17 10/20/17 History 7.5-325Mg] Lisinopril [Zestril] 20 mg PO HS 09/22/17 10/20/17 History Potassium Chloride [Klor-Con 10] 10 meq PO HS 09/22/17 10/20/17 History Aspirin [Ecotrin] 325 mg PO BID #30 tab.ec 10/01/17 10/20/17 Rx Allergies Allergy/AdvReac Type Severity Reaction Status Date / Time Penicillins AdvReac Mild Vomiting Verified 09/22/17 13:26 Medical - CN: Exam - Constitutional Vitals: Temp Pulse Resp BP Pulse Ox 98.6 F 78 20 122/79 97 10/21/17 08:00 10/21/17 08:00 10/21/17 08:00 10/21/17 08:00 10/21/17 08:00 Exam: GENERAL: The patient is a well-developed, well-nourished in no apparent distress. Is alert and oriented x3. VITAL SIGNS: Reviewed and as noted elsewhere. HEENT: Head is normocephalic and atraumatic. Extraocular muscles are intact. Pupils are equal, round, and reactive to light. Nares appeared normal. Mouth appears any without lesions. Mucous membranes are moist. NECK: Normal to inspection, Supple, No lymphadenopathy or thyromegaly. LUNGS: Air entry equal on both sides, no wheezing, crackles or rhonchi noted. No accessory muscles of respiration HEART: Regular rate and rhythm normal, S1 and S2 heard, no Gallop, S3 or Rub Noted, No Gross murmur heard. ABDOMEN: Soft, nontender, and nondistended. Positive bowel sounds. No hepatosplenomegaly was noted. EXTREMITIES: No cyanosis, clubbing, rash, lesions or edema. right knee has midlline incision, erythema extending from above the knee to the upper part leg. Tender to palpate, effusion present. NEUROLOGIC: Cranial nerves II through XII are grossly intact. Motor and Sensory System Grossly Intact PSYCHIATRIC: Normal affect, Normal Mood. Appropriate Behavior. SKIN: No ulceration or wounds noted, No jaundice, No rash noted. Medical - CN: Result - Labs CBC & Chem 7: 10/21/17 07:45 10/20/17 20:04 Labs: Short CBC 10/20/17 10/21/17 Range/Units 20:04 07:45 WBC 14.7 H 12.2 H (4.5-11.0) K/mcL Hgb 13.9 10.7 L (13.5-16.5) g/dL Hct 41.3 31.3 L (41.0-55.0) % Plt Count 268 205 (140-440) K/mcL BMP 10/20/17 20:04 Sodium 138 Potassium 3.6 Chloride 96 Carbon Dioxide 26 BUN 18 Creatinine 1.5 H Glucose 100 Calcium 9.6 Liver Function 10/20/17 Range/Units 20:04 Total Bilirubin 0.4 (0.0-1.0) mg/dL AST 22 (0-37) U/l ALT 23 (0-40) U/l Alkaline Phosphatase 83 (39-117) U/L Albumin 4.4 (3.2-5.2) gm/dL Medical - CN: A/P - Narrative A/P Narrative: A/P Septic Arthritis/ Vs Cellulitis- Post op complication from recent surgery, on IV vancomycin as per ortho. Would add Rocephin coverage for now. Management as per Ortho team. 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 Dr Severino is the new infectious disease insurance healthcare consultant. Gout- Chr issue, on allopurinol, will resume same. Check crystals in the joint fluid if possible HTN- BP well controlled, on chlorthalidone and lisinopril, continue same, labs stable HLD on statin, continue same CAD- No CP reported, on ASA for DVT prophylaxis per ortho, would benefit from baby aspirin after he finishes his high does asprin regime. hep C- he has finised treatment for hep c recently, will follow up with his GI doc. The patients medical issues are stable at this time, no active intervention warranted. Management predominantly driven by ortho given this is a post op complication from recent surgery. Will follow peripherally, while the patient is in the hospital. Can be discharged when deemed stable from orthopedic stand point. Thanks for allowing me to participate in the care of the patient.
[2017-10-21] MEDS ORDERED: VANCOMYCIN PER PHARMACY IV SCH (10:46)
[2017-10-21] MEDS: cefTRIAXone 2 GM VIAL IV SCH (11:28)
[2017-10-21] MEDS ORDERED: HYDROCODONE/APAP 7.5/325MG TABLET PO PRN (14:28)
[2017-10-21] MEDS ORDERED: CARISOPRODOL 350 MG TABLET PO PRN (14:28)
[2017-10-21] MEDS: HYDROCODONE/APAP 7.5/325MG TABLET PO PRN ×2 (15:40→20:18)
[2017-10-21] MEDS: VANCOMYCIN 1,500 MG in 0.9 % SODIUM CHLORIDE 500 ML IV SCH (16:08)
[2017-10-21] MEDS: CHLORTHALIDONE 25 MG TABLET PO SCH (20:15)
[2017-10-21] MEDS: ASPIRIN 325 MG ENTERIC COATED TABLET PO SCH (20:15)
[2017-10-21] MEDS: POTASSIUM CHLORIDE 10 MEQ TABLET PO SCH (20:15)
[2017-10-21] MEDS: ATORVASTATIN 20 MG TABLET PO SCH (20:16)
[2017-10-21] MEDS: FAMOTIDINE 20 MG TABLET PO SCH (20:17)
[2017-10-21] MEDS: LISINOPRIL 20 MG TABLET PO SCH (20:18)
[2017-10-21] MEDS: ALLOPURINOL 100 MG TABLET PO SCH (20:18)
[2017-10-21] MEDS ORDERED: FAMOTIDINE 20 MG TABLET PO SCH (21:00)
[2017-10-21] MEDS ORDERED: LISINOPRIL 20 MG TABLET PO SCH (21:00)
[2017-10-21] MEDS ORDERED: ATORVASTATIN 20 MG TABLET PO SCH (21:00)
[2017-10-21] MEDS ORDERED: ALLOPURINOL 100 MG TABLET PO SCH (21:00)
[2017-10-21] MEDS ORDERED: POTASSIUM CHLORIDE 10 MEQ TABLET PO SCH (21:00)
[2017-10-21] MEDS ORDERED: CHLORTHALIDONE 25 MG TABLET PO SCH (21:00)
[2017-10-22] MEDS: HYDROCODONE/APAP 7.5/325MG TABLET PO PRN ×3 (03:26→22:09)
[2017-10-22 06:12] LABS: Basophils # (Auto) 0 K/mcL (0.0-0.3); Basophils % (Auto) 0.3 % (0.0-2.0); Eosinophils # (Auto) 0.2 K/mcL (0.0-0.7); Granulocytes % (Auto) 68.3 % (38.0-78.0); Lymphocytes % (Auto) 20.9 % (15.5-49.0); Mean Cell Volume 92.6 fL (80.0-100.0); Mean Corpuscular HGB Conc 34.4 g/dL (31.0-36.0); Mean Corpuscular Hemoglobin 31.9 pg (26.0-34.0); Monocytes # (Auto) 0.8 K/mcL (0.1-0.9); Monocytes % (Auto) 8.5 % (1.0-12.0); Platelet Count 212 K/mcL (140-440); RBC 3.36 M/mcL (4.50-5.90); Red Cell Distribution Width 14.3 % (11.5-14.5)
[2017-10-22 06:36] LABS: C-Reactive Protein 7.2 mg/dl (0.0-0.8)
[2017-10-22] MEDS: 0.9 % SODIUM CHLORIDE 1,000 ML IV SCH ×2 (07:33→14:10)
--- NOTE | 2017-10-22 07:50 | Orthopedic Progress Note ---
Subjective Patient information: Note initiated : 10/22/17 at 7:46 am Service Date, if different from initiated Date: [] Patient: Manas Page 62 y/o M admitted on 10/21/17 for Post surgical infection. Chief Complaint: [] Interval history: feeling better, pain controlled Objective Vital signs: Vital Signs Temp Pulse Resp BP Pulse Ox 10/22/17 06:40 98.3 F 72 16 142/66 97 10/22/17 03:29 98.1 F 79 18 129/79 96 10/21/17 22:58 98.8 F 80 16 144/85 95 10/21/17 19:49 97.8 F 76 18 132/88 97 10/21/17 16:00 98.5 F 81 16 128/83 96 10/21/17 11:47 98.4 F 74 16 130/88 94 10/21/17 08:00 98.6 F 78 20 122/79 97 Intake and Output 10/21/17 10/22/17 10/22/17 21:59 05:59 13:59 Intake Total 1240 / 1240 370 / 370 1000 / 1000 Output Total 1002 / 1002 600 / 600 275 / 275 Balance 238 / 238 -230 / -230 725 / 725 Intake: IV 1000 / 1000 1000 / 1000 Sodium Chloride 0.9% 1,000 ml @ 1000 / 1000 1000 / 1000 100 mls/hr IV .Q10H TIMO Rx#: [id number] Oral 240 / 240 370 / 370 Output: Void Amount 1000 / 1000 600 / 600 275 / 275 # of times incontinent of urine 2 / 2 Other: Meal Dinner Percent of Meal Consumed 100% Feeding Ability Independent Urine Appearance Clear Clear Urine Color Pale Bright Yellow Urine Odor Normal Normal Stool Size Moderate Small Stool Color Brown Stool Consistency Formed Formed # Voids 1 1 1 # Bowel Movements 1 1 Weight 177 lb Intake & Output: Intake & Output 10/21/17 10/22/17 10/22/17 21:59 05:59 13:59 Intake Total 1240 / 1240 370 / 370 1000 / 1000 Output Total 1002 / 1002 600 / 600 275 / 275 Balance 238 / 238 -230 / -230 725 / 725 Weight 177 lb Intake: IV 1000 / 1000 1000 / 1000 Sodium Chloride 0.9% 1,000 ml @ 1000 / 1000 1000 / 1000 100 mls/hr IV .Q10H TIMO Rx#: [id number] Oral 240 / 240 370 / 370 Output: Void Amount 1000 / 1000 600 / 600 275 / 275 # of times incontinent of urine 2 / 2 Other: Meal Dinner Percent of Meal Consumed 100% Feeding Ability Independent Urine Appearance Clear Clear Urine Color Pale Bright Yellow Urine Odor Normal Normal Stool Size Moderate Small Stool Color Brown Stool Consistency Formed Formed # Voids 1 1 1 # Bowel Movements 1 1 Incision: Yes red (decreased on medial side of incision, no significant drainage ) Neurological exam IM: Yes alert, Yes oriented X3 Extremities exam IM: Yes full ROM - Labs CBC & BMP: 10/22/17 04:20 10/20/17 20:04 Labs: 10/22/17 10/21/17 10/20/17 04:20 07:45 20:04 Hgb 10.7 L 10.7 L 13.9 Hct 31.1 L 31.3 L 41.3 Assessment and Plan (1) Cellulitis of knee, right HD#2 on IV abx-now afebrile and normal WBC-cx's still pending, cellulitis improving but still red -consult with infectious disease -give diet today, npo after mn in case -cont iv abx Status: Acute
[2017-10-22] MEDS ORDERED: FLUoxetine HCL 20 MG CAPSULE PO SCH (09:00)
[2017-10-22] MEDS: cefTRIAXone 2 GM VIAL IV SCH (09:08)
[2017-10-22] MEDS: ASPIRIN 325 MG ENTERIC COATED TABLET PO SCH ×2 (09:09→20:18)
[2017-10-22] MEDS: FLUoxetine HCL 20 MG CAPSULE PO SCH (09:09)
[2017-10-22] MEDS: VANCOMYCIN 1,500 MG in 0.9 % SODIUM CHLORIDE 500 ML IV SCH (10:07)
[2017-10-22 10:17] LABS: C-Reactive Protein 6.3 mg/dl (0.0-0.8)
--- NOTE | 2017-10-22 15:17 | Infectious Disease Consult ---
History of Present Illness Patient information: Note initiated : 10/22/17 at 3:05 pm Service Date, if different from initiated Date: [] Patient: Manas Page 62 y/o M admitted on 10/21/17 for Post Surg Infection/Infected Prosthetic Knee Joint. Chief Complaint: [] Consult date: 10/22/17 Requesting Physician: Brenden Mario Reason for Consult: Infected right knee s/p total knee on 09/30/17 Chief complaint: my knee hurts History of present illness: 62-year-old man with past medical history pertinent for: IV drug use [cocaine and methamphetamines] last used 2 years ago hepatitis C Severe osteoarthritis, status post right total knee arthroplasty on 30 September 2017 Patient subsequently followed with his orthopedic surgeon on 15 October for removal of rosalinda. He was doing fine with no reported symptoms. On 18 October , he noticed small blister on the inner side of the knee joint which drained pus. Subsequently he noticed redness and swelling of the area around his knee joint which progressed and patient also had fever and chills on 19 October. Patient was brought to the ER by his neighbor given his worsening clinical symptoms. Patient denies any trauma, contact with his pets [3 cats and a dog]. Review of system is negative for: Headache, chest pain, cough, shortness of breath, diarrhea, nausea vomiting. Patient denies smoking, using alcohol or any other IV drugs. Lives by himself in [place]. When asked about his penicillin allergy, he said it was many years ago and symptoms were gastric intolerance. He never had any hives, rash, swelling of tongue, shortness of breath, swelling of throat. Review of Systems All systems PM: reviewed and no additional remarkable complaints except as stated Medications and Allergies Home Medications Medication Instructions Recorded Confirmed Type Allopurinol [Zyloprim] 200 mg PO HS 09/22/17 10/20/17 History Atorvastatin [Lipitor] 20 mg PO HS 09/22/17 10/20/17 History Carisoprodol [Soma] 700 mg PO HSP PRN 09/22/17 10/20/17 History Chlorthalidone [Hygroton] 25 mg PO HS 09/22/17 10/20/17 History FLUoxetine HCL [Prozac] 20 mg PO DAILY 09/22/17 10/20/17 History Famotidine [Pepcid] 40 mg PO HS 09/22/17 10/20/17 History Hydrocodone/APAP 7.5/325Mg [[place] 1 tab PO Q6-8HP PRN 09/22/17 10/20/17 History 7.5-325Mg] Lisinopril [Zestril] 20 mg PO HS 09/22/17 10/20/17 History Potassium Chloride [Klor-Con 10] 10 meq PO HS 09/22/17 10/20/17 History Aspirin [Ecotrin] 325 mg PO BID #30 tab.ec 10/01/17 10/20/17 Rx Allergies Allergy/AdvReac Type Severity Reaction Status Date / Time Penicillins AdvReac Mild Vomiting Verified 09/22/17 13:26 Physical Examination Vital signs: Temp Pulse Resp BP Pulse Ox 36.6 C 75 18 138/95 94 10/22/17 12:00 10/22/17 12:00 10/22/17 12:00 10/22/17 12:00 10/22/17 12:00 General appearance: no acute distress, alert Eyes pulmonary: nonicteric Auscultation: bilateral: clear Cardiovascular: regular rate and rhythm Gastrointestinal: normoactive bowel sounds Extremities: no edema normal mental status mood appropriate Right knee joint: There is swelling and redness around the knee joint, and including in the incisional area. There is a small opening in the incision over the kneecap where pus can be expressed. That area is tender. No pain with joint movement. There is also a small partially healed blister on the medial aspect of the knee joint. Results - Laboratory Findings CBC and BMP: 10/22/17 04:20 10/20/17 20:04 Abnormal lab findings: Abnormal Labs 10/20/17 10/20/17 10/21/17 20:04 20:04 07:45 WBC 14.7 H 12.2 H RBC 3.49 L Hgb 10.7 L Hct 31.3 L Lymph % (Auto) 14.2 L Gran # 11.2 H [place] # (Auto) 1.2 H ESR 54 H Creatinine 1.5 H C-Reactive Protein 6.5 H Total Protein 8.6 H Globulin 4.2 H 10/22/17 10/22/17 10/22/17 04:20 04:20 08:24 WBC RBC 3.36 L Hgb 10.7 L Hct 31.1 L Lymph % (Auto) Gran # [place] # (Auto) ESR Creatinine C-Reactive Protein 7.2 H 6.3 H Total Protein Globulin Microbiology: Microbiology 10/20/17 23:00 Aspirate - Knee Gram Stain - Final 10/20/17 23:00 Aspirate - Knee Body Fluid Culture - Preliminary 10/20/17 20:16 Blood Blood Culture - Preliminary 10/20/17 20:04 Blood Blood Culture - Preliminary 10/20/17 23:05 Knee - Right Gram Stain - Final 10/20/17 23:05 Knee - Right Wound Culture - Final 10/20/17 23:05 Wound - Superficial Gram Stain - Final 10/20/17 23:05 Wound - Superficial Wound Culture - Final Assessment and Plan - Narrative A/P Narrative: Assessment: 1. Skin and soft tissue infection around right prosthetic knee joint: The knee aspirate had 60% neutrophils with an absolute count of 772. The aspirate cultures are no growth till date. It is unclear whether the infection involves the prostatic knee joint or not but presence of cellulitis, blister with yellow colored fluid, drainage from the surgical incision on exam is concerning for possible deeper infection. If any of the cultures grew staph aureus or strep anginosus, a washout with retention and debridement could be considered. 2. No sepsis: Q-sofa score 0 Recommendations: We will send the pus seen on exam for wound culture and sensitivity and Gram stain We will send the nasal screen for MRSA We will recommend repeating serum creatinine, checking Vanco trough [target 10- 20] -Continue IV Vanco 1.5 g every 24, adjust if Vanco trough less than 10 or if creatinine is less than 1 [patient may need twice daily dosing] Continue IV ceftriaxone @2 g every 24 We will await culture sent previously [blood, knee aspirate] Papa Severino MD Infectious disease
[2017-10-22] MEDS: ATORVASTATIN 20 MG TABLET PO SCH (20:16)
[2017-10-22] MEDS: CHLORTHALIDONE 25 MG TABLET PO SCH (20:16)
[2017-10-22] MEDS: LISINOPRIL 20 MG TABLET PO SCH (20:17)
[2017-10-22] MEDS: FAMOTIDINE 20 MG TABLET PO SCH (20:17)
[2017-10-22] MEDS: POTASSIUM CHLORIDE 10 MEQ TABLET PO SCH (20:17)
[2017-10-22] MEDS: ALLOPURINOL 100 MG TABLET PO SCH (20:18)
[2017-10-23] MEDS: 0.9 % SODIUM CHLORIDE 1,000 ML IV SCH ×4 (00:58→16:30)
[2017-10-23] MEDS: HYDROCODONE/APAP 7.5/325MG TABLET PO PRN ×3 (04:10→21:54)
[2017-10-23 05:58] LABS: Basophils # (Auto) 0 K/mcL (0.0-0.3); Basophils % (Auto) 0.2 % (0.0-2.0); Eosinophils # (Auto) 0.3 K/mcL (0.0-0.7); Eosinophils % (Auto) 3.5 % (0.0-7.0); Granulocytes % (Auto) 57.3 % (38.0-78.0); Lymphocytes # (Auto) 2.4 K/mcL (1.5-4.8); Lymphocytes % (Auto) 29.1 % (15.5-49.0); Mean Cell Volume 93.6 fL (80.0-100.0); Mean Corpuscular HGB Conc 33.7 g/dL (31.0-36.0); Mean Corpuscular Hemoglobin 31.5 pg (26.0-34.0); Monocytes # (Auto) 0.8 K/mcL (0.1-0.9); Monocytes % (Auto) 9.9 % (1.0-12.0); Platelet Count 270 K/mcL (140-440); RBC 3.36 M/mcL (4.50-5.90); Red Cell Distribution Width 14.7 % (11.5-14.5)
[2017-10-23 06:05] LABS: Blood Urea Nitrogen 18 mg/dl (8-23)
[2017-10-23] MEDS: VANCOMYCIN 1,500 MG in 0.9 % SODIUM CHLORIDE 500 ML IV SCH (08:16)
[2017-10-23] MEDS: cefTRIAXone 2 GM VIAL IV SCH (08:16)
[2017-10-23] MEDS: ASPIRIN 325 MG ENTERIC COATED TABLET PO SCH ×2 (08:54→20:20)
[2017-10-23] MEDS: FLUoxetine HCL 20 MG CAPSULE PO SCH (08:54)
--- NOTE | 2017-10-23 09:41 | History and Physical Report ---
DATE OF ADMISSION: 10/21/2017 CHIEF COMPLAINT: Right knee infection. HISTORY: This is a 62-year-old male who on the of this month underwent a right total knee arthroplasty by me. He had done well postoperatively and at 2-week appointment had rosalinda removed with a normal-appearing incision. However, a couple of days prior to admission he started having increased redness. He saw a physician's collections assistant in [place], who started him on Keflex. However, he did not respond to the Keflex and noted feeling more feverish, so presented to the emergency room on the . PAST MEDICAL HISTORY: Gout, hypercholesterolemia, hepatitis C, depression, gastroesophageal reflux, hypertension. PAST SURGICAL HISTORY: Right knee replacement by me on 09/30/2017. MEDICATIONS: 1. Lisinopril. 2. Famotidine. 3. Fluoxetine. 4. Allopurinol. 5. Atorvastatin. 6. Carisoprodol. 7. Chlorthalidone. 7. Potassium chloride. 8. Hydrocodone. 9. Epclusa. ALLERGIES: PENICILLIN which caused vomiting. SOCIAL HISTORY: He lives alone in [place]. FAMILY HISTORY: Noncontributory. REVIEW OF SYSTEMS: Positive for fever, chills. Negative for chest pain or shortness of breath, bloody stool or urine. PHYSICAL EXAMINATION: VITAL SIGNS: Temperature in the emergency room went up to 100.9, pulse 103, respirations 18, blood pressure 125/95. GENERAL: He appears in no acute distress. He is oriented to person and place. Mood and affect are appropriate. Inspection of the right lower extremity revealed significant erythema surrounding the knee; however, there is no obvious fluctuance. There is very increased heat. There is minimal serous drainage. He has reasonably good range of motion that does not seem to cause him significant discomfort. LABORATORY DATA: White blood cell count 14.7. C-reactive protein 6.5. Erythrocyte sedimentation rate 54. IMPRESSION: Postoperative infection status post total knee arthroplasty that appears to be mainly cellulitis. PLAN: I recommend we go ahead and run a cell count on the aspirates and he has already been started on vancomycin. I will get a consult from hospitalist service and we will keep him n.p.o. after midnight tonight to monitor if this is worsening. I did go ahead and yolis with a marker the margins and we will follow him daily to determine whether or not surgical treatment is necessary. BJB:[email or web address] Ford: 10/23/2017 09:11:25 Job ID: [id number] Doc ID: [id number] Brenden Mario MD
[2017-10-23] MEDS ORDERED: TOBRAMYCIN SULFATE 1.2 GM VIAL TOPICAL ONE (10:06)
[2017-10-23] MEDS ORDERED: VANCOMYCIN 1 GM VIAL TOPICAL SCH (10:15)
[2017-10-23] MEDS ORDERED: ONDANSETRON 4 MG/2 ML VIAL IV ONE (10:30)
[2017-10-23] MEDS ORDERED: ROPIVACAINE HCL/PF 30 ML VIAL IJ ONE (10:30)
[2017-10-23] MEDS ORDERED: GLYCOPYRROLATE 0.2 MG/ML VIAL IV ONE (10:30)
[2017-10-23] MEDS ORDERED: fentaNYL 100 MCG/2 ML VIAL IV ONE (10:30)
[2017-10-23] MEDS ORDERED: KETAMINE 100 MG/ML ML IV ONE (10:30)
[2017-10-23] MEDS ORDERED: LIDOCAINE HCL/PF 100 MG/5 ML SYRINGE IV ONE (10:30)
[2017-10-23] MEDS ORDERED: HYDROmorphone 2 MG/ML VIAL IV ONE (10:30)
[2017-10-23] MEDS ORDERED: MIDAZOLAM 2 MG/2 ML VIAL IV ONE (10:30)
[2017-10-23] MEDS ORDERED: PROPOFOL 200 MG/20 ML VIAL IV ONE (10:30)
[2017-10-23] MEDS ORDERED: BENZOCAINE/MENTHOL 1 LOZENGE PO PRN (10:48)
[2017-10-23] MEDS ORDERED: BISACODYL 10 MG SUPP.RECT PR PRN (10:48)
[2017-10-23] MEDS ORDERED: ONDANSETRON 4 MG/2 ML VIAL IV PRN ×2 (10:48→11:01)
[2017-10-23] MEDS ORDERED: FLEETS ADULT ENEMA PR PRN (10:48)
[2017-10-23] MEDS ORDERED: POLYETHYLENE GLYCOL 3350 17 GM PACKET PO PRN (10:48)
[2017-10-23] MEDS ORDERED: MAGNESIUM HYDROXIDE 30 ML ORAL.SUSP PO PRN (10:48)
--- NOTE | 2017-10-23 10:52 | Brief Operative Note ---
Date of procedure: 10/23/17 Pre-op diagnosis: R knee superficial wound infection Post-op diagnosis: other (Deep periprosthetic joint infection) Procedure: I&D and poly exchange with placement of antibiotic beads Grafts/Implants: Yes (9mm insert) Anesthesia: GLMA Findings: deep infection Complications: none Surgeon: Brenden Mario Executive Director [employer]tered Workshop: PCP No Estimated blood loss (cc): 50 Specimens Removed/Pathology: other (poly, c&s) Condition: stable Disposition: PACU
[2017-10-23] MEDS ORDERED: IPRATROPIUM/ALBUTEROL 3 ML AMPUL.NEB NEB PRN (11:01)
[2017-10-23] MEDS ORDERED: METHOCARBAMOL 1,000 MG/10 ML VIAL IV PRN (11:01)
[2017-10-23] MEDS ORDERED: PROMETHAZINE 25 MG/ML VIAL IM PRN (11:01)
[2017-10-23] MEDS ORDERED: MEPERIDINE 50 MG/ML INJECTION IM PRN (11:01)
[2017-10-23] MEDS ORDERED: fentaNYL 100 MCG/2 ML VIAL IV PRN (11:01)
[2017-10-23] MEDS ORDERED: MEPERIDINE 25 MG/ML SYRINGE IV PRN (11:01)
[2017-10-23] MEDS ORDERED: PROMETHAZINE 25 MG/ML VIAL IV PRN (11:01)
[2017-10-23] MEDS ORDERED: HYDROmorphone 2 MG/ML VIAL IV PRN (11:01)
[2017-10-23] MEDS ORDERED: KETOROLAC 30 MG/ML VIAL IV PRN (11:01)
[2017-10-23] MEDS ORDERED: ACETAMINOPHEN 1,000 MG/100 ML BOTTLE IV ONE (11:01)
[2017-10-23] MEDS ORDERED: LACTATED RINGERS 1,000 ML IV SCH (11:15)
[2017-10-23] MEDS: 0.9 % SODIUM CHLORIDE 10 ML SYRINGE IV SCH ×3 (13:42→23:17)
[2017-10-23] MEDS ORDERED: HYDROmorphone 2 MG/ML VIAL ONE ×3 (16:25→23:16)
--- NOTE | 2017-10-23 17:09 | Event Note ---
Patient went to surgery today. Had "I&D and poly exchange with placement of antibiotic beads". Cultures obtained by me yesterday from the incision prior to surgery are growing staph aureus, sensitivities pending. Patient overall doing fine, normal vital signs, white cell count back to normal. Assessment: 1. Right prosthetic knee joint infection: Status post I&D and poly exchange with placement of antibiotic beads Preliminary cultures growing staph aureus 2. No sepsis: Q-sofa score 0 Recommendations: Consider increasing vancomycin dosing to 1 g every 12. Check Vanco trough before the fourth dose [target 10-20] -We will change IV ceftriaxone to IV cefazolin 2 gm q8 hrs. -We will start on p.o. rifampin once sensitivities for staph aureus are available -Patient will need at least 6 weeks of IV antibiotics with oral rifampin 300mg every 12 hours, followed by p.o. antibiotics to complete a total duration of 6 months - send baseline ESR -Final details of follow-up in ID clinic and IV antibiotics, once staph aureus sensitivities are back will follow Papa Severino MD Infectious disease
--- NOTE | 2017-10-23 17:30 | XRay Report ---
HISTORY: PICC line placement FINDINGS: A PICC line has been inserted through the left arm. The tip of the catheter is in the superior vena cava pointing inferiorly. This is well-positioned. The lungs are clear and well expanded. No pneumothorax, pleural effusion or widening of the mediastinum are present. The heart size is normal. IMPRESSION: Normal chest and no complication following PICC line insertion.. Nursing was called with the results Interpreted and Authenticated by: Ruben Pearl 10/23/17
[2017-10-23] MEDS ORDERED: ceFAZolin 1 GM VIAL ONE (18:13)
[2017-10-23] MEDS: ceFAZolin 1 GM VIAL IV SCH ×2 (18:23→23:17)
[2017-10-23] MEDS: HYDROmorphone 2 MG/ML VIAL IV PRN (18:34)
[2017-10-23] MEDS: LISINOPRIL 20 MG TABLET PO SCH (20:19)
[2017-10-23] MEDS: ALLOPURINOL 100 MG TABLET PO SCH (20:19)
[2017-10-23] MEDS: CARISOPRODOL 350 MG TABLET PO PRN (20:19)
[2017-10-23] MEDS: CHLORTHALIDONE 25 MG TABLET PO SCH (20:19)
[2017-10-23] MEDS: POTASSIUM CHLORIDE 10 MEQ TABLET PO SCH (20:19)
[2017-10-23] MEDS: ATORVASTATIN 20 MG TABLET PO SCH (20:20)
[2017-10-23] MEDS: FAMOTIDINE 20 MG TABLET PO SCH (20:20)
[2017-10-23] MEDS: SENNOSIDES 1 TABLET PO SCH (22:12)
[2017-10-23] MEDS: DOCUSATE SODIUM 100 MG CAPSULE PO SCH (22:12)
[2017-10-24] MEDS ORDERED: HYDROmorphone 2 MG/ML VIAL ONE ×2 (01:47→06:09)
[2017-10-24] MEDS: 0.9 % SODIUM CHLORIDE 1,000 ML IV SCH ×3 (03:05→17:49)
[2017-10-24] MEDS: HYDROCODONE/APAP 7.5/325MG TABLET PO PRN (04:34)
[2017-10-24] MEDS: ceFAZolin 1 GM VIAL IV SCH ×3 (05:58→21:13)
[2017-10-24] MEDS: 0.9 % SODIUM CHLORIDE 10 ML SYRINGE IV SCH ×5 (06:08→20:58)
[2017-10-24] MEDS: ASPIRIN 325 MG ENTERIC COATED TABLET PO SCH ×2 (08:54→20:53)
[2017-10-24] MEDS: FLUoxetine HCL 20 MG CAPSULE PO SCH (08:54)
[2017-10-24] MEDS: DOCUSATE SODIUM 100 MG CAPSULE PO SCH ×2 (08:54→20:55)
[2017-10-24] MEDS: VANCOMYCIN 1,500 MG in 0.9 % SODIUM CHLORIDE 500 ML IV SCH (08:54)
[2017-10-24] MEDS: HYDROmorphone 2 MG/ML VIAL IV PRN ×3 (09:09→21:51)
[2017-10-24] MEDS: oxyCODONE HCL 5 MG TABLET PO PRN ×3 (15:26→23:28)
[2017-10-24] MEDS: RIFAMPIN 300 MG CAPSULE PO SCH (20:52)
[2017-10-24] MEDS: CHLORTHALIDONE 25 MG TABLET PO SCH (20:53)
[2017-10-24] MEDS: LISINOPRIL 20 MG TABLET PO SCH (20:53)
[2017-10-24] MEDS: FAMOTIDINE 20 MG TABLET PO SCH (20:54)
[2017-10-24] MEDS: SENNOSIDES 1 TABLET PO SCH (20:54)
[2017-10-24] MEDS: ALLOPURINOL 100 MG TABLET PO SCH (20:54)
[2017-10-24] MEDS: ATORVASTATIN 20 MG TABLET PO SCH (20:55)
[2017-10-24] MEDS: POTASSIUM CHLORIDE 10 MEQ TABLET PO SCH (21:12)
[2017-10-24] MEDS: CARISOPRODOL 350 MG TABLET PO PRN (21:12)
[2017-10-25] MEDS: oxyCODONE HCL 5 MG TABLET PO PRN ×6 (03:37→23:57)
[2017-10-25] MEDS: ceFAZolin 1 GM VIAL IV SCH ×3 (05:48→21:34)
[2017-10-25] MEDS: 0.9 % SODIUM CHLORIDE 10 ML SYRINGE IV SCH ×5 (05:49→21:38)
[2017-10-25] MEDS: RIFAMPIN 300 MG CAPSULE PO SCH ×2 (07:53→19:44)
[2017-10-25] MEDS: ASPIRIN 325 MG ENTERIC COATED TABLET PO SCH ×2 (09:41→21:35)
[2017-10-25] MEDS: DOCUSATE SODIUM 100 MG CAPSULE PO SCH ×2 (09:41→21:36)
[2017-10-25] MEDS: FLUoxetine HCL 20 MG CAPSULE PO SCH (09:41)
--- NOTE | 2017-10-25 13:20 | Discharge Summary ---
Ortho Discharge - TKA - Patient Instructions Diet: Regular Diet Activity: weight bearing as tolerated Total Knee Protocol: For Total Knee: Start ROM JOJO with stationary bike or rocking chair. Work on gaining full extension of knee. Posterior dislocation precautions provided. Hip abductor strengthening and gait training instructions provided. Apply Cryocuff as instructed. Dressing Care: May shower in 2 days, Aquacel Ag - leave on for 5 days Patient Education: Peripherally Inserted Central Catheters and Midline Catheters (DC), Peripherally Inserted Central Catheters and Midline Catheters ( GEN) - Follow Up Plan Follow Up Appointments: Hank Garcia PA-C [Primary Care Provider] - Brenden Mario MD [Physician] - 11/09/17 Disposition: Xfer SNF Prognosis: Serious Rehab Potential: Good I certify that the patient requires SNF services: Yes Overall status at discharge: patient is progressing back to baseline - Orders For Discharge Prescriptions: Aspirin [Ecotrin] 325 mg PO BID #60 tab.ec oxyCODONE HCL [Roxicodone] 1 - 2 tab PO Q4HP PRN #60 tab PRN Reason: Pain Level 3-6
--- NOTE | 2017-10-25 13:29 | Orthopedic Progress Note ---
Subjective Patient information: Note initiated : 10/25/17 at 1:26 pm Service Date, if different from initiated Date: [] Patient: Manas Page 62 y/o M admitted on 10/21/17 for I&D RIGHT KNEE. Chief Complaint: [POD #3 s/p right knee I&D and poly liner exchange Patient doing well overall. No questions or concerns. No CP, SOB, calf pain, numbness or tingling] Objective Vital signs: Vital Signs Temp Pulse Resp BP Pulse Ox 10/25/17 11:52 98.1 F 20 117/76 95 10/25/17 07:27 98 F 20 108/70 95 10/25/17 03:10 98.8 F 93 H 20 120/88 94 10/24/17 23:27 99.0 F 95 H 18 111/79 92 10/24/17 19:40 99.0 F 10/24/17 19:31 99.3 F H 86 18 143/93 96 10/24/17 16:00 98.2 F 20 148/87 93 Intake and Output 10/24/17 10/25/17 10/25/17 21:59 05:59 13:59 Intake Total 1070 / 1070 0 / 0 240 / 240 Output Total 905 / 905 900 / 900 450 / 450 Balance 165 / 165 -900 / -900 -210 / -210 Intake: IV 950 / 950 Sodium Chloride 0.9% 1,000 ml @ 950 / 950 100 mls/hr IV .Q10H [facility] Rx#: [id number] Oral 120 / 120 0 / 0 240 / 240 Output: Drainage 5 / 5 Right Knee 5 / 5 Void Amount 900 / 900 900 / 900 450 / 450 Other: Meal Dinner Lunch Percent of Meal Consumed 100% 100% Feeding Ability Independent Independent Urine Appearance Clear Clear Clear Urine Color Pale Dark Yellow [place] Urine Odor Normal Normal # Voids 2 # Bowel Movements 1 1 Weight 204 lb 8 oz Intake & Output: Intake & Output 10/24/17 10/25/17 10/25/17 21:59 05:59 13:59 Intake Total 1070 / 1070 0 / 0 240 / 240 Output Total 905 / 905 900 / 900 450 / 450 Balance 165 / 165 -900 / -900 -210 / -210 Weight 204 lb 8 oz Intake: IV 950 / 950 Sodium Chloride 0.9% 1,000 ml @ 950 / 950 100 mls/hr IV .Q10H [facility] Rx#: [id number] Oral 120 / 120 0 / 0 240 / 240 Output: Drainage 5 / 5 Right Knee 5 / 5 Void Amount 900 / 900 900 / 900 450 / 450 Other: Meal Dinner Lunch Percent of Meal Consumed 100% 100% Feeding Ability Independent Independent Urine Appearance Clear Clear Clear Urine Color Pale Dark Yellow [place] Urine Odor Normal Normal # Voids 2 # Bowel Movements 1 1 Incision: Yes healing, No draining, No red, No swollen, No inflamed, Yes clean and dry Incision clean and dry: Yes Dressing: Yes clean, Yes dry, Yes intact Weight bearing status: as tolerated Neurological exam IM: Yes alert, Yes oriented X3, Yes motor sensory intact, Yes neurovascular intact Extremities exam IM: No calf tenderness, Yes normal capillary refill, Yes Foot pink and warm, Yes neurovascular intact - Periperhal Pulses Peripheral pulses: 2+: dorsalis pedis (L), dorsalis pedis (R), posterior tibialis (L), posterior tibialis (R) - Labs CBC & BMP: 10/23/17 04:10 10/23/17 04:10 Labs: 10/23/17 10/22/17 10/21/17 04:10 04:20 07:45 Hgb 10.6 L 10.7 L 10.7 L Hct 31.5 L 31.1 L 31.3 L 10/20/17 20:04 Hgb 13.9 Hct 41.3 Assessment and Plan (1) Infected prosthetic knee joint POD #2 s/p right knee I&D and poly liner exchange: -d/c to SNF at [facility] tomorrow. SNF orders to follow with doctor -outpatient abx per ID. Orders to follow with them -pain control. Rx given in outpatient orders today -WBAT -f/u in ortho office 10-[address] Mario for staple removal and PO -ASA 325mg BID x 30 days for DVT prophylaxis Status: Acute Qualifiers: Encounter type: initial encounter Qualified Code(s): T84.59XA - Infection and inflammatory reaction due to other internal joint prosthesis, initial encounter; Z96.659 - Presence of unspecified artificial knee joint
[2017-10-25] MEDS: POTASSIUM CHLORIDE 10 MEQ TABLET PO SCH (21:35)
[2017-10-25] MEDS: ALLOPURINOL 100 MG TABLET PO SCH (21:35)
[2017-10-25] MEDS: CHLORTHALIDONE 25 MG TABLET PO SCH (21:35)
[2017-10-25] MEDS: ATORVASTATIN 20 MG TABLET PO SCH (21:35)
[2017-10-25] MEDS: CARISOPRODOL 350 MG TABLET PO PRN (21:35)
[2017-10-25] MEDS: FAMOTIDINE 20 MG TABLET PO SCH (21:35)
[2017-10-25] MEDS: LISINOPRIL 20 MG TABLET PO SCH (21:36)
[2017-10-25] MEDS: SENNOSIDES 1 TABLET PO SCH (21:36)
[2017-10-26] MEDS: oxyCODONE HCL 5 MG TABLET PO PRN ×3 (04:10→12:16)
[2017-10-26] MEDS: ceFAZolin 1 GM VIAL IV SCH (05:02)
[2017-10-26] MEDS: 0.9 % SODIUM CHLORIDE 10 ML SYRINGE IV SCH ×2 (05:04→08:25)
--- NOTE | 2017-10-26 07:26 | Discharge Summary ---
Providers - Providers Patient information: Note initiated : 10/26/17 at 7:23 am Service Date, if different from initiated Date: [] Patient: Manas Page 62 y/o M admitted on 10/21/17 for I&D RIGHT KNEE. Chief Complaint: [] Discharge date: 10/26/17 Attending physician: Brenden Mario Hospitalization Hospital course: Patient admitted for infection. Fever and WBC normalized the following day after starting IV abx. However, redness and warmth did not resolve so HD#3 patient went for I&D and was found to have infection down into the joint. We did a polyethylene exchange and placed abx beads. Hospitalists and Infectious disease were both consulted. PICC line placed. Was d/c'd once arrangement for abx made. Discharge diagnosis: infected total knee arthroplasty Reason for admission: R knee infection Procedures: I&D and poly exchange of R total knee infection Exam - Exam Clean and dry: Yes Ortho Discharge Plan - General - Patient Instructions Diet: Regular Diet Activity: weight bearing as tolerated Dressing Care: Cover dressing in shower Patient Education: Peripherally Inserted Central Catheters and Midline Catheters (DC), Peripherally Inserted Central Catheters and Midline Catheters ( GEN) - Problem Maintenance (1) Cellulitis of knee, right Status: Acute - Follow Up Plan Follow Up Appointments: Brenden Mario MD [Physician] - 11/09/17 Hank Garcia, PABereniceC [Primary Care Provider] - Disposition: Xfer SNF Prognosis: Serious Rehab Potential: Good I certify that the patient requires SNF services: Yes - Orders For Discharge Prescriptions: Aspirin [Ecotrin] 325 mg PO BID #60 tab.ec oxyCODONE HCL [Roxicodone] 1 - 2 tab PO Q4HP PRN #60 tab PRN Reason: Pain Level 3-6 Additional Discharge Orders: Physical Therapy at Discharge - [place]KA Location: None Selected Walker Location: None Selected Pending Studies Resuscitation Status Full Code Diet Consistent Carbohydrate Diet Start ThuOct 23 104 Allopurinol (Zyloprim) 200 mg PO HS [facility] Last Admin: 10/25/17 21:35 Dose: 200 mg Admin: 10/24/17 20:54 Dose: 200 mg Admin: 10/23/17 20:19 Dose: 200 mg Admin: 10/22/17 20:18 Dose: 200 mg Admin: 10/21/17 20:18 Dose: 200 mg Aspirin (Ecotrin) 325 mg PO BID [facility] Last Admin: 10/25/17 21:35 Dose: 325 mg Admin: 10/25/17 09:41 Dose: 325 mg Admin: 10/24/17 20:53 Dose: 325 mg Admin: 10/24/17 08:54 Dose: 325 mg Admin: 10/23/17 20:20 Dose: 325 mg Admin: 10/23/17 08:54 Dose: Not Given Admin: 10/22/17 20:18 Dose: 325 mg Admin: 10/22/17 09:09 Dose: 325 mg Admin: 10/21/17 20:15 Dose: 325 mg Atorvastatin Calcium (Lipitor) 20 mg PO [facility] Last Admin: 10/25/17 21:35 Dose: 20 mg Admin: 10/24/17 20:55 Dose: 20 mg Admin: 10/23/17 20:20 Dose: 20 mg Admin: 10/22/17 20:16 Dose: 20 mg Admin: 10/21/17 20:16 Dose: 20 mg Carisoprodol (Soma) 700 mg PO [facility] PRN PRN Reason: Muscle Spasm Last Admin: 10/25/17 21:35 Dose: 700 mg Admin: 10/24/17 21:12 Dose: 700 mg Admin: 10/23/17 20:19 Dose: 700 mg Cefazolin Sodium (Ancef) 2 gm IV Q8H [facility] Last Admin: 10/26/17 05:02 Dose: 2 gm Admin: 10/25/17 21:34 Dose: 2 gm Admin: 10/25/17 13:32 Dose: 2 gm Admin: 10/25/17 05:48 Dose: 2 gm Admin: 10/24/17 21:13 Dose: 2 gm Admin: 10/24/17 13:27 Dose: 2 gm Admin: 10/24/17 05:58 Dose: 2 gm Admin: 10/23/17 23:17 Dose: 2 gm Admin: 10/23/17 18:23 Dose: Chlorthalidone (Hygroton) 25 mg PO [facility] Last Admin: 10/25/17 21:35 Dose: 25 mg Admin: 10/24/17 20:53 Dose: 25 mg Admin: 10/23/17 20:19 Dose: 25 mg Admin: 10/22/17 20:16 Dose: 25 mg Admin: 10/21/17 20:15 Dose: 25 mg Docusate Sodium (Colace) 100 mg PO BID [facility] Last Admin: 10/25/17 21:36 Dose: Not Given Admin: 10/25/17 09:41 Dose: Not Given Admin: 10/24/17 20:55 Dose: Not Given Admin: 10/24/17 08:54 Dose: 100 mg Admin: 10/23/17 22:12 Dose: Not Given Famotidine (Pepcid) 40 mg PO HS [facility] Last Admin: 10/25/17 21:35 Dose: 40 mg Admin: 10/24/17 20:54 Dose: 40 mg Admin: 10/23/17 20:20 Dose: 40 mg Admin: 10/22/17 20:17 Dose: 40 mg Admin: 10/21/17 20:17 Dose: 40 mg Fluoxetine HCl (Prozac) 20 mg PO DAILY [facility] Last Admin: 10/25/17 09:41 Dose: 20 mg Admin: 10/24/17 08:54 Dose: 20 mg Admin: 10/23/17 08:54 Dose: Not Given Admin: 10/22/17 09:09 Dose: 20 mg Admin: 10/21/17 07:12 Dose: Not Given Heparin Sodium (Porcine) (Heparin Flush) 2 ml IV Q12 [facility] Last Admin: 10/25/17 21:35 Dose: 2 ml Admin: 10/25/17 09:41 Dose: 2 ml Admin: 10/24/17 20:54 Dose: 2 ml Admin: 10/24/17 08:54 Dose: 2 ml Admin: 10/23/17 22:12 Dose: Hydromorphone HCl (Dilaudid) 0 mg IV Q2HP PRN PRN Reason: PAIN LEVEL > 6 Last Admin: 10/24/17 21:51 Dose: 2 mg Admin: 10/24/17 13:40 Dose: 2 mg Admin: 10/24/17 09:09 Dose: 2 mg Admin: 10/23/17 18:34 Dose: 1 mg Lisinopril (Zestril) 20 mg PO HS [facility] Last Admin: 10/25/17 21:36 Dose: 20 mg Admin: 10/24/17 20:53 Dose: 20 mg Admin: 10/23/17 20:19 Dose: 20 mg Admin: 10/22/17 20:17 Dose: 20 mg Admin: 10/21/17 20:18 Dose: 20 mg Morphine Sulfate (Morphine) 2 mg IV Q1HP PRN PRN Reason: PAIN LEVEL > 6 Last Admin: 10/23/17 20:12 Dose: 2 mg Admin: 10/23/17 14:55 Dose: 2 mg Admin: 10/21/17 22:09 Dose: 2 mg Admin: 10/21/17 07:13 Dose: 2 mg Oxycodone HCl (Roxicodone) 5 - 10 mg PO Q4HP PRN PRN Reason: PAIN LEVEL 3-6 Last Admin: 10/26/17 04:10 Dose: 10 mg Admin: 10/25/17 23:57 Dose: 10 mg Admin: 10/25/17 19:44 Dose: 10 mg Admin: 10/25/17 16:40 Dose: 10 mg Admin: 10/25/17 11:52 Dose: 10 mg Admin: 10/25/17 07:53 Dose: 10 mg Admin: 10/25/17 03:37 Dose: 10 mg Admin: 10/24/17 23:28 Dose: 10 mg Admin: 10/24/17 19:29 Dose: 10 mg Admin: 10/24/17 15:26 Dose: 10 mg Potassium Chloride (Kdur) 10 meq PO [facility] Last Admin: 10/25/17 21:35 Dose: 10 meq Admin: 10/24/17 21:12 Dose: 10 meq Admin: 10/23/17 20:19 Dose: 10 meq Admin: 10/22/17 20:17 Dose: 10 meq Admin: 10/21/17 20:15 Dose: 10 meq Rifampin (Rifampin) 300 mg PO BID@0700,1999 [facility] Last Admin: 10/25/17 19:44 Dose: 300 mg Admin: 10/25/17 07:53 Dose: 300 mg Admin: 10/24/17 20:52 Dose: 300 mg Senna (Senokot) 2 tab PO [facility] Last Admin: 10/25/17 21:36 Dose: Not Given Admin: 10/24/17 20:54 Dose: Not Given Admin: 10/23/17 22:12 Dose: Not Given Sodium Chloride (Saline Flush) 10 ml IV Q8 [facility] Last Admin: 10/26/17 05:04 Dose: 10 ml Admin: 10/25/17 21:36 Dose: 10 ml Admin: 10/25/17 13:32 Dose: 10 ml Admin: 10/25/17 05:49 Dose: 10 ml Admin: 10/24/17 20:54 Dose: 10 ml Admin: 10/24/17 13:27 Dose: 10 ml Admin: 10/24/17 06:08 Dose: 10 ml Admin: 10/23/17 23:17 Dose: 10 ml Admin: 10/23/17 13:42 Dose: Not Given Sodium Chloride (Saline Flush) 10 ml IV Q12 [facility] Last Admin: 10/25/17 21:38 Dose: 10 ml Admin: 10/25/17 09:41 Dose: 10 ml Admin: 10/24/17 20:58 Dose: 10 ml Admin: 10/24/17 08:55 Dose: 10 ml Admin: 10/23/17 21:08 Dose: Not Given Shift Summary 10/26/17 04:38 Shift Summary by Christian Connelly VSS on RA. Up w/SBA and FWW to BR. Requires a bit of assistance getting in and out of bed. Ambulated past nurses station w/AREA DIRECTOR prior to HS. Steady on feet. 10mg oxycodone q4h for pain. Rated pain between 3-5/10 this shift. No IV dilaudid administered. Soma administered @ HS per pt home medication routine. Did not want ice to right knee throughout night. No complaints of numbness or tingling. Aquacel to right knee, bandage over drain removal site, small blisters to lateral knee noted at edge of bandage. PICC to left arm flushing w/ good blood return. Tolerating diet w/no complaints of nausea. Initialized on 10/26/17 04:38 - END OF NOTE
[2017-10-26] MEDS: RIFAMPIN 300 MG CAPSULE PO SCH (07:35)
[2017-10-26] MEDS: ASPIRIN 325 MG ENTERIC COATED TABLET PO SCH (08:24)
[2017-10-26] MEDS: FLUoxetine HCL 20 MG CAPSULE PO SCH (08:24)
[2017-10-26] MEDS: DOCUSATE SODIUM 100 MG CAPSULE PO SCH (08:26)
--- NOTE | 2017-10-26 08:55 | Operative Note ---
DATE OF OPERATION: 10/23/2017 PREOPERATIVE DIAGNOSIS: Right knee superficial infection status post total knee arthroplasty. 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 PROCEDURE PERFORMED: Incision and drainage with irrigation and debridement with polyethylene exchange of the right knee. SURGEON: Brenden Mario MD WELL PULLER HEAD: None. ANESTHESIA: General. DRAINS: Medium Hemovac. SPECIMENS: Culture and sensitivity as well as removed polyethylene insert. COMPLICATIONS: None. POSTOPERATIVE CONDITION: Stable. INDICATIONS FOR SURGERY: This is a gentleman who approximately 3-1/2 weeks ago had undergone a total knee arthroplasty by me. He had been doing well until the first of the week, this week when he started having increased redness around the knee. He presented to his primary care who started him on Keflex. However, over the next 2 days he had worsening symptoms and presented to the emergency department on Thursday. We had evaluated him and initially he did not appear to have a substantial drainage from the knee or substantial amount of swelling. We aspirated the knee and there was a low cell count so we went ahead and just treated him with IV antibiotics and wanted to see how he improved. His white count did normalize and he no longer had fevers; however, the erythema at the knee did not resolve so I elected to take him to surgery today. FINDINGS AT SURGERY: There was purulence extending all the way down to the joint, although not severely purulent. PROCEDURE IN DETAIL: The patient had been seen preoperatively and informed consent had been obtained after discussion of risks and benefits of surgery. Risks including, but not limited to bleeding, continued infection, injury to nerves, blood vessels other surrounding structures; anesthetic risks; and the possibility of needing further surgeries. He understood these risks and wished to proceed. Correct operative site was marked and the patient was taken to the operating room. General anesthesia induced. Right lower extremity was prepped and draped in normal sterile fashion and a time-out performed verifying patient name, operative site, and plan. The leg was elevated for approximately a minute, and then a tourniquet was inflated. His midline incision was opened up initially just over the patella and immediate fluid was expressed that appeared purulent. I went ahead and took a culture of this, I then palpated and this seemed to track proximal and distal so I went ahead and opened up his entire incision and indeed the proximal portion of the deep closure was opened and infection was extending into the joint. At this point, we went ahead and removed all of his sutures from previous. I then exposed the joint and used an osteotome to remove his polyethylene insert. We then began an aggressive synovectomy with a rongeur, removing all the pseudofilm from the gutters and suprapatellar pouch. I also used a curet as well. Once we had a good debridement and all biofilm that we could visualize grossly removed we went ahead and filled the joint with 50% mix of saline and Betadine. Meanwhile, we started making antibiotic absorbable beads on the back table. This was made with 2 bottles of vancomycin and 2 of tobramycin. After waiting 2 minutes of the Betadine soak we then pulse lavaged with 3000 liters of saline. I then did the IrriSept irrigation and soaked; after a minute then went ahead and did a repeat Betadine soaked, 50% diluted. Again after several minutes, I then pulse lavaged another 3000 and then after that filled the joint with IrriSept. Again after a couple of minutes we then pulse lavaged this out. I then trialled an insert. I wanted to check and see if with our debridement, we could fit an 11 insert in and we could not, so I opened a 9 X3 tibial insert. We impacted this until it was fully seated. I then placed the knee in about 45 degrees of flexion. We placed our antibiotic beads in the suprapatellar pouch and gutters. I placed a 1/8-inch Hemovac drain out the superior lateral portion and then used a 0 Maxon looped to close the deep layer, interrupted [id number] were used around the patella. A running stitch was used for patellar tendon and quad tendon. I did a final IrriSept irrigation, after a minute final pulse lavage, and then 2-0 Monocryl was used for subcutaneous and rosalinda were used for skin. The drain was hooked to Constavac suction and Xeroform and a sterile dressing were applied. Tourniquet was released. The patient was awakened, extubated, and transferred to recovery in stable condition. DARCIE:[email or web address] Job ID: [id number] Doc ID: [id number] Brenden Mario MD
--- NOTE | 2017-10-26 09:47 | Infectious Disease Prog Note ---
Subjective Patient information: Note initiated : 10/26/17 at 9:45 am Service Date, if different from initiated Date: [] Patient: Manas Page 62 y/o M admitted on 10/21/17 for I&D RIGHT KNEE. Chief Complaint: [] Interval history: Patient is doing well. Endorses few soft to loose bowel movements yesterday. Denies any fever, chills, nausea, vomiting. The pain in the right knee is controlled. Discussed with him the plan to continue IV antibiotics for 6 weeks along with oral rifampin followed by infectious disease clinic follow-up and subsequent plan to continue oral antibiotics for total of 6 months. Objective Objective Narrative: Right knee: Under occlusive dressing. Per nursing change yesterday, rosalinda appeared intact, no drainage - Vital Signs Vital signs: Vital Signs Temp Pulse Pulse Resp BP Pulse Ox 10/26/17 07:56 36.8 C 80 22 132/88 94 10/26/17 04:00 37.1 C 86 20 128/86 94 10/25/17 23:32 37.1 C 98 H 24 H 125/85 94 10/25/17 19:00 37.7 C H 93 H 24 H 115/81 96 10/25/17 15:41 37.1 C 20 122/84 95 10/25/17 11:52 36.7 C 20 117/76 95 Intake and Output 10/25/17 10/26/17 10/26/17 21:59 05:59 13:59 Intake Total 520 / 520 100 / 100 Output Total 750 / 750 650 / 650 200 / 200 Balance -230 / -230 -550 / -550 -200 / -200 Intake: Oral 520 / 520 100 / 100 Output: Void Amount 750 / 750 650 / 650 200 / 200 # of times incontinent of urine 0 / 0 Other: Meal Dinner Percent of Meal Consumed 100% Feeding Ability Independent Urine Appearance Clear Clear Clear Urine Color Dark Yellow Evans Dark Yellow Urine Odor Normal Normal Strong Stool Size Large Moderate Stool Color Brown Brown Yellow Green Stool Consistency Soft Soft Loose # Voids 1 # Bowel Movements 1 1 # of times incontinent of 0 Bowels Weight 90.492 kg Intake & Output: Intake & Output 10/25/17 10/26/17 10/26/17 21:59 05:59 13:59 Intake Total 520 / 520 100 / 100 Output Total 750 / 750 650 / 650 200 / 200 Balance -230 / -230 -550 / -550 -200 / -200 Weight 90.492 kg Intake: Oral 520 / 520 100 / 100 Output: Void Amount 750 / 750 650 / 650 200 / 200 # of times incontinent of urine 0 / 0 Other: Meal Dinner Percent of Meal Consumed 100% Feeding Ability Independent Urine Appearance Clear Clear Clear Urine Color Dark Yellow [place] Dark Yellow Urine Odor Normal Normal Strong Stool Size Large Moderate Stool Color Brown Brown Yellow Green Stool Consistency Soft Soft Loose # Voids 1 # Bowel Movements 1 1 # of times incontinent of 0 Bowels - General Appearance General appearance: well-developed Respiratory: clear Cardiology: no murmurs, normal S1, normal S2 Gastrointestinal: normoactive bowel sounds, no tenderness - Lab 10/23/17 04:10 10/23/17 04:10 Most recent lab results Calcium 9.0 mg/dl (8.6-10.4) 10/23/17 04:10 Microbiology 10/20/17 20:16 Blood Blood Culture - Final 10/20/17 20:04 Blood Blood Culture - Final 10/23/17 10:38 Knee - Right Gram Stain - Final 10/23/17 10:38 Knee - Right Gram Stain - Final 10/23/17 10:38 Knee - Right Anaerobic Culture - Preliminary 10/23/17 10:38 Knee - Right Gram Stain - Final 10/23/17 10:38 Knee - Right Wound Culture - Final Staphylococcus aureus 10/22/17 16:01 Knee - Right Gram Stain - Final 10/22/17 16:01 Knee - Right Wound Culture - Final Staphylococcus aureus 10/20/17 23:00 Aspirate - Knee Gram Stain - Final 10/20/17 23:00 Aspirate - Knee Body Fluid Culture - Final 10/22/17 16:01 Nose - Anterior MRSA (PCR) - Final 10/20/17 23:05 Knee - Right Gram Stain - Final 10/20/17 23:05 Knee - Right Wound Culture - Final 10/20/17 23:05 Wound - Superficial Gram Stain - Final 10/20/17 23:05 Wound - Superficial Wound Culture - Final Medications Active Medications: Allopurinol (Zyloprim) 200 mg PO HS TIMO Last Admin: 10/25/17 21:35 Dose: 200 mg Admin: 10/24/17 20:54 Dose: 200 mg Admin: 10/23/17 20:19 Dose: 200 mg Admin: 10/22/17 20:18 Dose: 200 mg Admin: 10/21/17 20:18 Dose: 200 mg Aspirin (Ecotrin) 325 mg PO BID [facility] Last Admin: 10/26/17 08:24 Dose: 325 mg Admin: 10/25/17 21:35 Dose: 325 mg Admin: 10/25/17 09:41 Dose: 325 mg Admin: 10/24/17 20:53 Dose: 325 mg Comments: barcode didnt scan Admin: 10/24/17 08:54 Dose: 325 mg Admin: 10/23/17 20:20 Dose: 325 mg Admin: 10/23/17 08:54 Dose: Not Given Non-Admin Reason: NPO Admin: 10/22/17 20:18 Dose: 325 mg Admin: 10/22/17 09:09 Dose: 325 mg Admin: 10/21/17 20:15 Dose: 325 mg Atorvastatin Calcium (Lipitor) 20 mg PO [facility] Last Admin: 10/25/17 21:35 Dose: 20 mg Admin: 10/24/17 20:55 Dose: 20 mg Admin: 10/23/17 20:20 Dose: 20 mg Admin: 10/22/17 20:16 Dose: 20 mg Admin: 10/21/17 20:16 Dose: 20 mg Bisacodyl (Dulcolax) 10 mg MN Q2-3DAYS PRN PRN Reason: Constipation Carisoprodol (Soma) 700 mg PO HSP PRN PRN Reason: Muscle Spasm Last Admin: 10/25/17 21:35 Dose: 700 mg Admin: 10/24/17 21:12 Dose: 700 mg Admin: 10/23/17 20:19 Dose: 700 mg Cefazolin Sodium (Ancef) 2 gm IV Q8H [facility] Last Admin: 10/26/17 05:02 Dose: 2 gm Admin: 10/25/17 21:34 Dose: 2 gm Admin: 10/25/17 13:32 Dose: 2 gm Admin: 10/25/17 05:48 Dose: 2 gm Admin: 10/24/17 21:13 Dose: 2 gm Admin: 10/24/17 13:27 Dose: 2 gm Admin: 10/24/17 05:58 Dose: 2 gm Admin: 10/23/17 23:17 Dose: 2 gm Admin: 10/23/17 18:23 Dose: Chlorthalidone (Hygroton) 25 mg PO [facility] Last Admin: 10/25/17 21:35 Dose: 25 mg Admin: 10/24/17 20:53 Dose: 25 mg Admin: 10/23/17 20:19 Dose: 25 mg Admin: 10/22/17 20:16 Dose: 25 mg Admin: 10/21/17 20:15 Dose: 25 mg Docusate Sodium (Colace) 100 mg PO BID [facility] Last Admin: 10/26/17 08:26 Dose: Not Given Non-Admin Reason: Loose Stool Admin: 10/25/17 21:36 Dose: Not Given Non-Admin Reason: Patient Refused Admin: 10/25/17 09:41 Dose: Not Given Non-Admin Reason: Patient Refused Admin: 10/24/17 20:55 Dose: Not Given Non-Admin Reason: Patient Refused Admin: 10/24/17 08:54 Dose: 100 mg Admin: 10/23/17 22:12 Dose: Not Given Non-Admin Reason: Patient Refused Famotidine (Pepcid) 40 mg PO [facility] Last Admin: 10/25/17 21:35 Dose: 40 mg Admin: 10/24/17 20:54 Dose: 40 mg Admin: 10/23/17 20:20 Dose: 40 mg Admin: 10/22/17 20:17 Dose: 40 mg Admin: 10/21/17 20:17 Dose: 40 mg Fluoxetine HCl (Prozac) 20 mg PO DAILY [facility] Last Admin: 10/26/17 08:24 Dose: 20 mg Admin: 10/25/17 09:41 Dose: 20 mg Admin: 10/24/17 08:54 Dose: 20 mg Admin: 10/23/17 08:54 Dose: Not Given Non-Admin Reason: NPO Admin: 10/22/17 09:09 Dose: 20 mg Admin: 10/21/17 07:12 Dose: Not Given Non-Admin Reason: NPO Heparin Sodium (Porcine) (Heparin Flush) 2 ml IV Q12 [facility] Last Admin: 10/26/17 08:26 Dose: 2 ml Admin: 10/25/17 21:35 Dose: 2 ml Comments: 2mL per lumen Admin: 10/25/17 09:41 Dose: 2 ml Admin: 10/24/17 20:54 Dose: 2 ml Comments: 2mL per lumen Admin: 10/24/17 08:54 Dose: 2 ml Admin: 10/23/17 22:12 Dose: Hydromorphone HCl (Dilaudid) 0 mg IV Q2HP PRN PRN Reason: PAIN LEVEL > 6 Last Admin: 10/24/17 21:51 Dose: 2 mg Admin: 10/24/17 13:40 Dose: 2 mg Admin: 10/24/17 09:09 Dose: 2 mg Admin: 10/23/17 18:34 Dose: 1 mg Hydromorphone HCl (Dilaudid) 0.5 mg IV Q15MIN PRN PRN Reason: PAIN LEVEL > 6 Lisinopril (Zestril) 20 mg PO HS TIMO Last Admin: 10/25/17 21:36 Dose: 20 mg Admin: 10/24/17 20:53 Dose: 20 mg Admin: 10/23/17 20:19 Dose: 20 mg Admin: 10/22/17 20:17 Dose: 20 mg Admin: 10/21/17 20:18 Dose: 20 mg Magnesium Hydroxide (Milk Of Magnesia) 30 ml PO BIDP PRN PRN Reason: Constipation Morphine Sulfate (Morphine) 2 mg IV Q1HP PRN PRN Reason: PAIN LEVEL > 6 Last Admin: 10/23/17 20:12 Dose: 2 mg Admin: 10/23/17 14:55 Dose: 2 mg Admin: 10/21/17 22:09 Dose: 2 mg Admin: 10/21/17 07:13 Dose: 2 mg Ondansetron HCl (Zofran) 4 mg IV Q4HP PRN PRN Reason: Nausea And Vomiting Ondansetron HCl (Zofran) 4 mg IV Q4HP PRN PRN Reason: Nausea And Vomiting Oxycodone HCl (Roxicodone) 5 - 10 mg PO Q4HP PRN PRN Reason: PAIN LEVEL 3-6 Last Admin: 10/26/17 08:24 Dose: 10 mg Admin: 10/26/17 04:10 Dose: 10 mg Admin: 10/25/17 23:57 Dose: 10 mg Admin: 10/25/17 19:44 Dose: 10 mg Admin: 10/25/17 16:40 Dose: 10 mg Admin: 10/25/17 11:52 Dose: 10 mg Admin: 10/25/17 07:53 Dose: 10 mg Admin: 10/25/17 03:37 Dose: 10 mg Admin: 10/24/17 23:28 Dose: 10 mg Admin: 10/24/17 19:29 Dose: 10 mg Admin: 10/24/17 15:26 Dose: 10 mg Polyethylene Glycol (Miralax) 17 gm PO DAILYP PRN PRN Reason: Constipation Potassium Chloride (Kdur) 10 meq PO [facility] Last Admin: 10/25/17 21:35 Dose: 10 meq Admin: 10/24/17 21:12 Dose: 10 meq Admin: 10/23/17 20:19 Dose: 10 meq Admin: 10/22/17 20:17 Dose: 10 meq Admin: 10/21/17 20:15 Dose: 10 meq Rifampin (Rifampin) 300 mg PO BID@699,1999 [facility] Last Admin: 10/26/17 07:35 Dose: 300 mg Admin: 10/25/17 19:44 Dose: 300 mg Admin: 10/25/17 07:53 Dose: 300 mg Admin: 10/24/17 20:52 Dose: 300 mg Senna (Senokot) 2 tab PO [facility] Last Admin: 10/25/17 21:36 Dose: Not Given Non-Admin Reason: Patient Refused Admin: 10/24/17 20:54 Dose: Not Given Non-Admin Reason: Patient Refused Admin: 10/23/17 22:12 Dose: Not Given Non-Admin Reason: Patient Refused Sodium Biphosphate/Sodium Phosphate (Fleets Adult) 1 dose MN Q3-4DAYS PRN PRN Reason: Constipation Sodium Chloride (Saline Flush) 10 ml IV Q8 [facility] Last Admin: 10/26/17 05:04 Dose: 10 ml Admin: 10/25/17 21:36 Dose: 10 ml Admin: 10/25/17 13:32 Dose: 10 ml Admin: 10/25/17 05:49 Dose: 10 ml Admin: 10/24/17 20:54 Dose: 10 ml Admin: 10/24/17 13:27 Dose: 10 ml Admin: 10/24/17 06:08 Dose: 10 ml Admin: 10/23/17 23:17 Dose: 10 ml Admin: 10/23/17 13:42 Dose: Not Given Non-Admin Reason: Continuous IV Sodium Chloride (Saline Flush) 10 ml IV Q12 [facility] Last Admin: 10/26/17 08:25 Dose: 10 ml Admin: 10/25/17 21:38 Dose: 10 ml Admin: 10/25/17 09:41 Dose: 10 ml Admin: 10/24/17 20:58 Dose: 10 ml Admin: 10/24/17 08:55 Dose: 10 ml Admin: 10/23/17 21:08 Dose: Not Given Non-Admin Reason: Bag Still Infusing Throat Lozenges (Cepacol) 1 lozenge PO PRN PRN PRN Reason: Sore Throat Assessment and Plan - Narrative A/P Narrative: Assessment: 1. MSSA right prosthetic knee joint infection: Status post I&D on 23 October and poly exchange with placement of antibiotic beads 2. No sepsis: Q-sofa score 0 Patient recovering well Recommendations: - Continue IV cefazolin 2 gm q8 hrs through the PICC line and p.o. rifampin 300 mg every 12 hours, day 3. Stop date: December 04, 2017 Follow-up labs: CBC and BMP once weekly ESR and CRP once every 2 weeks Fax labs to: [id number] -Counseled about signs and symptoms of C. difficile infection, and to seek medical attention -Scheduled follow-up in infectious disease clinic on Nov 30, 2017 at 10:30 am [ Address: [address] [place] [address], [address] [address]] Papa Severino MD Infectious disease
--- NOTE | 2017-10-26 10:30 | Discharge Summary ---
Medical - DS: Prov Patient information: Note initiated : 10/26/17 at 10:24 am Service Date, if different from initiated Date: [] Patient: Manas Page 62 y/o M admitted on 10/21/17 for I&D RIGHT KNEE. Chief Complaint: [] Date of admission: 10/21/17 00:32 Discharge date: 10/26/17 Primary care physician: Hank Garcia Consults: 10/20/17 Consult to Physician [CONS] Stat Comment: Consulting Provider: Brenden Mario Reason For Exam: Physician to Consult Consult to Physician [CONS] Stat Comment: Consulting Provider: Prabhu Arias Reason For Exam: Physician to Consult 10/22/17 07:47 Consult to Infectious Disease [CONS] Routine Comment: Consulting Provider: Papa Severino Reason For Exam: Physician to Consult ID Consult Information: Patient admitted 10/20/17 Dr Mario - [phone] - Cell phone Consult date: 10/22/17 Reason for Consult: Infected right knee s/p total knee on 09/30/17 Medical - DS: Meds - Discharge Medications Prescriptions: Aspirin [Ecotrin] 325 mg PO BID #60 tab.ec oxyCODONE HCL [Roxicodone] 1 - 2 tab PO Q4HP PRN #60 tab PRN Reason: Pain Level 3-6 Active and Home Medications: Home Medications Allopurinol [Zyloprim] 200 mg PO HS 09/22/17 [History Confirmed 10/20/17 Last Taken 09/29/17 21:00] Atorvastatin [Lipitor] 20 mg PO HS 09/22/17 [History Confirmed 10/20/17 Last Taken 09/29/17 21:00] Carisoprodol [Soma] 700 mg PO HSP PRN 09/22/17 [History Confirmed 10/20/17 Last Taken 09/29/17 21:00] Chlorthalidone [Hygroton] 25 mg PO HS 09/22/17 [History Confirmed 10/20/17 Last Taken 09/29/17 21:00] FLUoxetine HCL [Prozac] 20 mg PO DAILY 09/22/17 [History Confirmed 10/20/17 Last Taken 09/29/17 07:00] Famotidine [Pepcid] 40 mg PO HS 09/22/17 [History Confirmed 10/20/17 Last Taken 09/29/17 21:00] Lisinopril [Zestril] 20 mg PO HS 09/22/17 [History Confirmed 10/20/17 Last Taken 09/29/17 21:00] Potassium Chloride [Klor-Con 10] 10 meq PO HS 09/22/17 [History Confirmed Last Taken 09/29/17 21:00] Ibuprofen [Advil] 1 tab PO TIDP PRN 10/24/17 [History Confirmed 10/24/17 Last Taken Unknown] oxyCODONE HCL [Oxycodone HCl] 1 - 2 tab PO Q4HP PRN 10/24/17 [History Confirmed 10/24/17 Last Taken Unknown] Aspirin [Ecotrin] 325 mg PO BID #60 tab.ec 10/25/17 [Rx Last Taken Unknown] oxyCODONE HCL [Roxicodone] 1 - 2 tab PO Q4HP PRN #60 tab 10/25/17 [Rx Last Taken Unknown] Medical - DS: Hosp Hospital course: Mr. Page is a 62 year old M status post I&D on 23 October and poly exchange with placement of antibiotic beads. He is being DC'd to SNF w/ plan to continue IV Abx and followup with ID as follows: Continue IV cefazolin 2 gm q8 hrs through the PICC line and p.o. rifampin 300 mg every 12 hours, day 3. Stop date: December 04, 2017 Follow-up labs: CBC and BMP once weekly ESR and CRP once every 2 weeks Fax labs to: [id number] Follow-up in infectious disease clinic on Nov 30, 2017 at 10:30 am [Address: [address] [place] [address], [address], [place] [address]] Discharge diagnosis: MSSA right prosthetic knee joint infection - Time Spent with Patient Total time spent providing and/or coordinating discharge services: Greater than 30 minutes Medical - DS: Exam - Constitutional Vitals: Vital Signs Temp Pulse Pulse Resp BP Pulse Ox 10/26/17 07:56 98.2 F 80 22 132/88 94 10/26/17 04:00 98.7 F 86 20 128/86 94 10/25/17 23:32 98.7 F 98 H 24 H 125/85 94 10/25/17 19:00 99.9 F H 93 H 24 H 115/81 96 10/25/17 15:41 98.8 F 20 122/84 95 10/25/17 11:52 98.1 F 20 117/76 95 Intake and Output 10/25/17 10/26/17 10/26/17 21:59 05:59 13:59 Intake Total 520 / 520 100 / 100 Output Total 750 / 750 650 / 650 200 / 200 Balance -230 / -230 -550 / -550 -200 / -200 Intake: Oral 520 / 520 100 / 100 Output: Void Amount 750 / 750 650 / 650 200 / 200 # of times incontinent of urine 0 / 0 Other: Meal Dinner Percent of Meal Consumed 100% Feeding Ability Independent Urine Appearance Clear Clear Clear Urine Color Dark Yellow [place] Dark Yellow Urine Odor Normal Normal Strong Stool Size Large Moderate Stool Color Brown Brown Yellow Green Stool Consistency Soft Soft Loose # Voids 1 # Bowel Movements 1 1 # of times incontinent of 0 Bowels Weight 199 lb 8 oz Additional comments: well-developed lungs clear Heart no murmurs, normal S1, normal S2 GI normoactive bowel sounds, no tenderness Medical - DS: Data Procedures and tests throughout hospitalization: Status post I&D on 23 October and poly exchange with placement of antibiotic beads Labs on day of discharge: Preliminary micro results at discharge 10/23/17 10:38 Anaerobic Culture - Preliminary Knee - Right Medical - DS: A/P - Patient/Caregiver Discharge Instructions Activity: as instructed Diet: Cardiac Additional Instructions: You have been scheduled to Follow up with Dr. Severino on 11/30/2017 @ 10:30 AM. His office is located at [address] [place] [address]. [address] If you have any questions you can contact them at [phone] Discharge Instructions: Do the exercises at home that physical therapy gave you. Take your prescription, photo ID, insurance cards, and current medication list with you to your first physical therapy appointment. Take your prescription to supervisor locomotive any medication or equipment (such as walker, crutches, toilet riser or C.P.M.) Wear comfortable clothing for your physical therapy. Weight bearing as tolerated. If you have the Aquacel Ag dressing, leave in place for 7 days then remove. If dressing becomes soiled (turns black), remove and use gauze 4x4 dressing and silvasorb ointment and change daily. Keep incision clean and dry. Dry Dressing Daily until Follow up with Dr. Mario on 11/09 @ 1:50 PM. If you have any questions they can be reached at [phone]. [facility] is located at [address] [place] [address] ID. To avoid constipation while taking any narcotic pain medication, take an over the counter stool softener/laxative. Use your Cryocuff or ice packs as directed, on for 20 minutes at a time throughout the day. This and elevation will help with pain and swelling. Call your physician for fevers above 100.5 or pain not controlled by medication. Your prescriptions are with your discharge information. Take Aspirin twice daily, for 30 days, as prescribed to prevent blood clots ( see medication list). Prescriptions: Aspirin [Ecotrin] 325 mg PO BID #60 tab.ec oxyCODONE HCL [Roxicodone] 1 - 2 tab PO Q4HP PRN #60 tab PRN Reason: Pain Level 3-6 Other Amb Orders: Physical Therapy at Discharge - TKA Location: None Selected Walker Location: None Selected - Problem Maintenance (1) Infected prosthetic knee joint Status: Acute Qualifiers: Encounter type: initial encounter Qualified Code(s): T84.59XA - Infection and inflammatory reaction due to other internal joint prosthesis, initial encounter; Z96.659 - Presence of unspecified artificial knee joint (2) Cellulitis of knee, right Status: Acute - Follow up Plan Follow up with: Papa Severino MD [Physician] - 11/30/17 10:30 am (Located in [address]) Brenden Mario MD [Physician] - 11/09/17 1:50 pm Hank Garcia PA-C [Primary Care Provider] - Disposition: Xfer SNF Prognosis: Fair Rehab Potential: Good Medical - DS: Qual - VTE Deep Vein Thrombosis/Pulmonary Embolism Present on Admission: No
== END 2017-10-26 12:20 | DRG 486 ==
LOC: ED 19:12 → MEDSUR 10-21 00:32
PROVIDERS: ADMIT Orthopaedic Surgery; ATTEND Internal Medicine Nephrology

== ENCOUNTER 2022-01-24 15:03 | Inpatient (IN) ==
[2022-01-24 17:12] LABS: POC Calcium, Ionized 1.19 (1.16-1.32); POC Potassium 4.6 (3.3-5.1)
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
[2022-01-24 17:56] LABS: Basophils # (Auto) 0.02 K/mcL (0.00-0.30); Basophils % (Auto) 0.2 % (0.0-2.0); Eosinophils # (Auto) 0.22 K/mcL (0.00-0.70); Eosinophils % (Auto) 2.5 % (0.0-7.0); Hematocrit 34.6 % (40.1-51.0); Hemoglobin 11.5 g/dL (13.7-17.5); Lymphocytes # (Auto) 1.98 K/mcL (1.50-4.80); Lymphocytes % (Auto) 22.4 % (15.5-49.0); Mean Cell Volume 88.7 fL (80.0-100.0); Mean Corpuscular HGB Conc 33.2 g/dL (31.0-36.0); Mean Platelet Volume 10.4 fL (8.8-12.5); Monocytes # (Auto) 0.67 K/mcL (0.10-0.90); Monocytes % (Auto) 7.6 % (1.0-12.0); Platelet Count 213 K/mcL (140-440); Red Cell Distribution Width 14.1 % (11.5-14.5); WBC 8.9 K/mcL (4.5-11.0)
[2022-01-24] MEDS ORDERED: FUROSEMIDE 80 MG TABLET PO ONE (18:20)
[2022-01-24] MEDS ORDERED: FUROSEMIDE 100 MG/10 ML VIAL IV ONE (18:41)
[2022-01-24] MEDS ORDERED: LISINOPRIL 20 MG TABLET PO ONE (19:47)
[2022-01-24] MEDS ORDERED: hydrALAZINE 20 MG/ML VIAL IV ONE (19:47)
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
[2022-01-24] MEDS ORDERED: NITROGLYCERIN 0.4 MG TAB.SUBL SL ONE (20:46)
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
[2022-01-24] MEDS ORDERED: hydrALAZINE 20 MG/ML VIAL IV PRN (23:48)
[2022-01-24] MEDS ORDERED: LACTULOSE 20 GM/30 ML ORAL.SOL PO PRN (23:48)
[2022-01-24] MEDS ORDERED: ONDANSETRON 4 MG/2 ML VIAL IV PRN (23:48)
[2022-01-24] MEDS ORDERED: IPRATROPIUM/ALBUTEROL 3 ML AMPUL.NEB NEB PRN (23:48)
[2022-01-24] MEDS ORDERED: SENNOSIDES 1 TABLET PO PRN (23:48)
[2022-01-24] MEDS ORDERED: NITROGLYCERIN 0.4 MG TAB.SUBL SL PRN (23:48)
[2022-01-24] MEDS ORDERED: PNEUMOCOCCAL 23-VAL P-SAC VAC 0.5 ML SYRINGE IM ONE (23:57)
[2022-01-25 00:37] LABS: Amphetamine Screen,Urine Suspect positive; Barbiturate Screen,Urine None detected; Benzodiazepines Screen,Urine Suspect positive; Cannabinoid Screen,Urine Suspect Positive; Cocaine Screen,Urine None detected; Opiate Screen,Urine None detected; Oxycodone, Urine Screen None detected; Phencyclidine Screen,Urine None detected
[2022-01-25] MEDS: 0.9 % SODIUM CHLORIDE 10 ML SYRINGE IV SCH ×3 (05:30→20:59)
[2022-01-25 06:39] LABS: Basophils # (Auto) 0.01 K/mcL (0.00-0.30); Basophils % (Auto) 0.1 % (0.0-2.0); Eosinophils # (Auto) 0.16 K/mcL (0.00-0.70); Eosinophils % (Auto) 1.8 % (0.0-7.0); Hematocrit 36.1 % (40.1-51.0); Hemoglobin 12.1 g/dL (13.7-17.5); Lymphocytes % (Auto) 15.9 % (15.5-49.0); Mean Cell Volume 89.6 fL (80.0-100.0); Mean Corpuscular HGB Conc 33.5 g/dL (31.0-36.0); Mean Platelet Volume 10.4 fL (8.8-12.5); Monocytes # (Auto) 0.69 K/mcL (0.10-0.90); Monocytes % (Auto) 7.8 % (1.0-12.0); Neutrophils % (Auto) 74.1 % (38.0-78.0); Platelet Count 250 K/mcL (140-440); RBC 4.03 M/mcL (4.63-6.08); WBC 8.8 K/mcL (4.5-11.0)
[2022-01-25 06:59] LABS: ALT/SGPT 11 U/L (<40); AST/SGOT 13 U/L (<40); Albumin 3.9 gm/dL (3.2-5.2); Albumin/Globulin Ratio 1.2 (1.0-2.3); Alkaline Phosphatase 91 U/L (39-117); Bilirubin,Total 0.6 mg/dL (0.1-1.0); Blood Urea Nitrogen 27 mg/dL (8-23); Calcium 9.2 mg/dL (8.6-10.4); Carbon Dioxide 23 mmol/L (22-30); Chloride 103 mmol/L (96-108); Globulin 3.2 gm/dL (2.2-3.7); Glomerular Filtration Rate 34; Glucose 102 mg/dL (70-105)
[2022-01-25] MEDS ORDERED: hydrALAZINE 20 MG/ML VIAL ONE (07:36)
[2022-01-25] MEDS: FUROSEMIDE 40 MG/4 ML VIAL IV SCH ×2 (09:00→15:28)
[2022-01-25] MEDS: DOCUSATE SODIUM 100 MG CAPSULE PO SCH ×2 (09:01→20:58)
[2022-01-25] MEDS: HEPARIN 5,000 UNIT/ML VIAL SQ SCH ×2 (09:01→20:58)
--- NOTE | 2022-01-25 09:05 | XRay Report ---
HISTORY: Short of breath FINDINGS: The heart is mild to moderately enlarged. There is no congestive heart failure or pulmonary infiltrate. No pleural effusion is present. Aorta is mildly tortuous. No prior study is available for comparison. IMPRESSION: Cardiomegaly Interpreted and Authenticated by: Ruben Pearl 01/25/22
[2022-01-25] MEDS: ACETAMINOPHEN 325 MG TABLET PO PRN (09:42)
--- NOTE | 2022-01-25 12:22 | Internal Med Progress Note ---
SUBJECTIVE Subjective Patient information: Note initiated : 01/25/22 at 12:18 pm Service Date, if different from initiated Date: [] Patient: Manas Page a 66 y/o M admitted on 01/24/22 for Shortness of breath-CHF Exacerbation. Chief Complaint: [] Interval history: Mr. Page is a 66 year old M history of essential hypertensions, gout, chronic kidney disease stage III, methamphetamine abuse, presenting with 3-week history of gradual onset, gradually worsening shortness of breath. He admits to be snoring methamphetamine up until a week ago. He does not have any history of heart attack or heart failure. Over the past 3 weeks, he has been experiencing gradual onset, gradually worsening shortness of breath accompanied with dysuria of exertions with half a block. He denies any unintentional weight gain or leg swelling. He experienced orthopnea with 2 pillows at night when he sleeps. He is also complained of nonproductive cough but denies any respiratory wheezings. He denies any chest pain or palpitations. He states that he is compliant to his medications. Vital signs at ED presentation significant for tachycardia and tachypnea with heart rate and rate of breathing up to the 1 teens and 30s, respectively. Labs significant for lack of leukocytosis cysts with WBC 8.9. Debbie, influenza A& B, all negative. D-dimer elevated to 1.81. Serum creatinine level 2.0 with baseline 1.4. Serum BNP 56325. Preliminary result of the chest x-ray showing bilateral pulmonary edema. CT angiogram of the chest pending. Admission request called for CHF exacerbation. 01/25: CoVID PCR negative. On room air. UDS positive for methamphetamine, benzodiazepine, and marijuana. No other major overnight events. c/o improving degree of shortness of breath. c/o nonproductive cough. Denies wheezing. Denies chest pain or palpitation. Denies fever, chills, or sweating. c/o general body weakness. Pending 2D echocardiogram reports. Continue IV Lasix and Lisinopril. No beta katty at time of CHF exacerbation. Physical therapy evaluation and treatment. Constitutional Vitals: Vital Signs Temp Pulse Resp BP Pulse Ox O2 Del Method 36.8 C 118 H 18 135/99 97 01/25/22 12:00 01/25/22 12:00 01/25/22 12:00 01/25/22 12:00 01/25/22 12:00 01/25/22 07:48 Period Temp Pulse Resp BP Sys/[place] Pulse Ox O2 Del Method O2 Flow Rate Last 24 Hr 36.2 C-37.3 C 48-118 12-30 135-200/92-145 93-99 Room Air-Room Air Intake and Output 01/25/22 01/25/22 01/25/22 03:59 11:59 19:59 Intake Total 480 Output Total 3000 750 Balance -3000 -270 Weight 84.232 kg Intake & Output: Intake & Output 01/25/22 01/25/22 01/25/22 03:59 11:59 19:59 Intake Total 480 Output Total 3000 750 Balance -3000 -270 Weight 84.232 kg Intake: Oral 480 Output: Void Amount 3000 750 # of times incontinent of urine 0 Other: Meal Breakfast Percent of Meal Consumed 75% Feeding Ability Independent Urine Appearance Clear Clear Urine Color Pale Yellow Urine Odor Normal Normal # Voids 1 # Bowel Movements 1 # of times incontinent of 0 Bowels Head Head exam: Present atraumatic and normal inspection Eye Eye exam: Present normal appearance ENT ENT exam: Present mucous membranes moist, normal exam and normal external ear exam Neck Neck exam: Present normal inspection Respiratory Respiratory exam: Present normal respiratory exam Cardiovascular Cardiovascular exam: Present tachycardia GI/Abdominal GI/Abdominal exam: Present normal bowel sounds Extremities Exam Extremities exam: Present pedal edema Back Exam Back exam: Present normal inspection Neurological Exam Neurological exam: Present alert and oriented X3 Skin Skin exam: Present intact and warm OBJ DATA Labs CBC & Chem 7: 01/25/22 05:01 01/25/22 05:01 Labs: Abnormal Lab Results 01/25/22 01/25/22 01/24/22 05:01 05:01 17:54 RBC 4.03 L Hgb 12.1 L Hct 36.1 L POC Hct Lymph # (Auto) 1.40 L D-Dimer POC Chloride POC BUN BUN 27 H Creatinine 2.0 H POC Creatinine NT-Pro-B Natriuret Pep Ur Amphetamines Screen Suspect positive A U Benzodiazepines Scrn Suspect positive A U Marijuana (THC) Screen Suspect positive A 01/24/22 01/24/22 01/24/22 16:57 16:56 16:56 RBC Hgb Hct POC Hct 34.0 L Lymph # (Auto) D-Dimer 1.81 H POC Chloride 112 H POC BUN 29 H BUN Creatinine POC Creatinine 2.0 H NT-Pro-B Natriuret Pep 87988.0 H Ur Amphetamines Screen U Benzodiazepines Scrn U Marijuana (THC) Screen 01/24/22 16:56 RBC 3.90 L Hgb 11.5 L Hct 34.6 L POC Hct Lymph # (Auto) D-Dimer POC Chloride POC BUN BUN Creatinine POC Creatinine NT-Pro-B Natriuret Pep Ur Amphetamines Screen U Benzodiazepines Scrn U Marijuana (THC) Screen Meds: Medications Acetaminophen (Acetaminophen 325 Mg Tablet) 650 mg PO Q6HP PRN; Protocol PRN Reason: Per Pain Protocol/Fever > 101 Last Admin: 01/25/22 09:42 Dose: 650 mg Albuterol/Ipratropium (Ipratropium/Albuterol 3 Ml Ampul.Neb) 3 ml NEB Q4HRT PRN PRN Reason: Wheezing Allopurinol (Allopurinol 100 Mg Tablet) 200 mg PO HS [facility]1983 Atorvastatin Calcium (Atorvastatin 20 Mg Tablet) 20 mg PO HS [facility]1983 Docusate Sodium (Docusate Sodium 100 Mg Capsule) 100 mg PO BID [facility]1983 Last Admin: 01/25/22 09:01 Dose: 100 mg Furosemide (Furosemide 40 Mg/4 Ml Vial) 40 mg IV BIDD [facility]1983 Last Admin: 01/25/22 09:00 Dose: 40 mg Heparin Sodium (Porcine) (Heparin 5,000 Unit/Ml Vial) 5,000 unit SQ Q12 [facility]1983 Last Admin: 01/25/22 09:01 Dose: 5,000 unit Hydralazine HCl (Hydralazine 20 Mg/Ml Vial) 10 mg IV Q4-6HP PRN PRN Reason: Hypertension Last Admin: 01/25/22 07:28 Dose: 10 mg Lactulose (Lactulose 20 Gm/30 Ml Oral.Angelika) 10 gm PO DAILYP PRN PRN Reason: Constipation Lisinopril (Lisinopril 20 Mg Tablet) 20 mg PO HS [facility]1983 Metoprolol Tartrate (Metoprolol Tartrate 5 Mg/5 Ml Vial) 5 mg IV Q5M PRN PRN Reason: Tachyarrhythmias Nitroglycerin (Nitroglycerin 0.4 Mg Tab.Subl) 0.4 mg SL Q5M PRN PRN Reason: Chest Pain Omeprazole (Omeprazole 20 Mg Capsule) 20 mg PO BID [facility] Ondansetron HCl (Ondansetron 4 Mg/2 Ml Vial) 4 mg IV Q4HP PRN; Protocol PRN Reason: Nausea And Vomiting Potassium Chloride (Potassium Chloride 10 Meq Tablet) 10 meq PO HS TIMO Senna (Sennosides 1 Tablet) 2 tab PO HSP PRN PRN Reason: Constipation Sodium Chloride (0.9 % Sodium Chloride 10 Ml Syringe) 10 ml IV Q8 [facility] Last Admin: 01/25/22 05:30 Dose: 10 ml A/P Assessment and plan (1) CHF exacerbation: Status: Acute (2) Methamphetamine abuse: Status: Acute (3) HTN (hypertension): Status: Acute (4) Acute on chronic kidney failure: Status: Acute (5) Gout: Status: Acute (6) Anemia, normocytic normochromic: Status: Acute Narrative A/P Narrative: Assessment and Plans: 1. Congestive heart failure with exacerbation: Inpatient PCU with telemetry Strict intake and output measurement Daily weigh 2L/day fluid restriction Lasix 40mg IV BID No beta katty at time of exacerbation Lisinopril Supplemental oxygen therapy as needed titrate to achieve spo2>=92% 2D echocardiogram, reports pending CoVID PCR negative Physical therapy evaluation and treatment 2. h/o methamphetamine abuse: Urine drug screen: positive for methamphetamine, benzodiazepine, and marijuana 3. h/o essential hypertension: Lasix 40mg IV BID No beta katty at time of exacerbation Lisinopril Hydralazine 10mg IV q4-6hr PRN SBP>=180 and/or DBP>=110mmHg 4. Gout: Continue allopurinol 5. Acute on chronic kidney injury: Avoid nephrotoxic agents Saline lock with IV diuretics CMP in the morning to trend kidney functions 6. Anemia, normocytic normochromic: cbc w/ auto diff in the morning to trend H/H GI ppx: Prilosec DVT ppx: Heparin Code status: Full Prognosis: guarded Disposition: inpatient PCU; PT Time Spent With Patient Time: Total time spent is greater than 50% in coordination of care (as documented) at patient's floor/unit and/or counseling patient: Total time spent with greater than 50% in coordination of care (as documented) at patient's floor/unit and/or counseling patient:: 25 - 35 minutes
[2022-01-25] MEDS: METOPROLOL TARTRATE 5 MG/5 ML VIAL IV PRN (15:29)
[2022-01-25] MEDS: LISINOPRIL 20 MG TABLET PO SCH (20:57)
[2022-01-25] MEDS: POTASSIUM CHLORIDE 10 MEQ TABLET PO SCH (20:57)
[2022-01-25] MEDS: OMEPRAZOLE 20 MG CAPSULE PO SCH (20:58)
[2022-01-25] MEDS: ALLOPURINOL 100 MG TABLET PO SCH (20:58)
[2022-01-25] MEDS: ATORVASTATIN 20 MG TABLET PO SCH (21:09)
[2022-01-26] MEDS: 0.9 % SODIUM CHLORIDE 10 ML SYRINGE IV SCH ×3 (05:40→20:29)
[2022-01-26 06:41] LABS: Basophils # (Auto) 0.02 K/mcL (0.00-0.30); Basophils % (Auto) 0.2 % (0.0-2.0); Eosinophils # (Auto) 0.21 K/mcL (0.00-0.70); Hematocrit 42.8 % (40.1-51.0); Hemoglobin 14.1 g/dL (13.7-17.5); Lymphocytes # (Auto) 2.17 K/mcL (1.50-4.80); Lymphocytes % (Auto) 20.6 % (15.5-49.0); Mean Cell Volume 88.6 fL (80.0-100.0); Mean Corpuscular HGB Conc 32.9 g/dL (31.0-36.0); Monocytes # (Auto) 0.97 K/mcL (0.10-0.90); Monocytes % (Auto) 9.2 % (1.0-12.0); Neutrophils % (Auto) 67.7 % (38.0-78.0); Platelet Count 274 K/mcL (140-440); RBC 4.83 M/mcL (4.63-6.08); Red Cell Distribution Width 13.9 % (11.5-14.5); WBC 10.5 K/mcL (4.5-11.0)
[2022-01-26 07:32] LABS: ALT/SGPT 9 U/L (<40); AST/SGOT 13 U/L (<40); Albumin 3.8 gm/dL (3.2-5.2); Albumin/Globulin Ratio 1.1 (1.0-2.3); Alkaline Phosphatase 96 U/L (39-117); Bilirubin,Total 0.5 mg/dL (0.1-1.0); Blood Urea Nitrogen 31 mg/dL (8-23); Calcium 9.2 mg/dL (8.6-10.4); Carbon Dioxide 23 mmol/L (22-30); Chloride 100 mmol/L (96-108); Globulin 3.5 gm/dL (2.2-3.7); Glomerular Filtration Rate 30; Glucose 104 mg/dL (70-105)
[2022-01-26] MEDS: DOCUSATE SODIUM 100 MG CAPSULE PO SCH ×2 (08:55→20:29)
[2022-01-26] MEDS: OMEPRAZOLE 20 MG CAPSULE PO SCH ×2 (08:55→20:28)
[2022-01-26] MEDS: FUROSEMIDE 40 MG/4 ML VIAL IV SCH (08:55)
[2022-01-26] MEDS: HEPARIN 5,000 UNIT/ML VIAL SQ SCH ×2 (08:55→20:29)
[2022-01-26] MEDS ORDERED: PNEUMOCOCCAL 23-VAL P-SAC VAC 0.5 ML SYRINGE IM ONE (10:00)
--- NOTE | 2022-01-26 11:33 | Internal Med Progress Note ---
SUBJECTIVE Subjective Patient information: Note initiated : 01/26/22 at 11:28 am Service Date, if different from initiated Date: [] Patient: Manas Page a 66 y/o M admitted on 01/24/22 for Shortness of breath-CHF Exacerbation. Chief Complaint: [] Interval history: Mr. Page is a 66 year old M history of essential hypertensions, gout, chronic kidney disease stage III, methamphetamine abuse, presenting with 3-week history of gradual onset, gradually worsening shortness of breath. He admits to be snoring methamphetamine up until a week ago. He does not have any history of heart attack or heart failure. Over the past 3 weeks, he has been experiencing gradual onset, gradually worsening shortness of breath accompanied with dysuria of exertions with half a block. He denies any unintentional weight gain or leg swelling. He experienced orthopnea with 2 pillows at night when he sleeps. He is also complained of nonproductive cough but denies any respiratory wheezings. He denies any chest pain or palpitations. He states that he is compliant to his medications. Vital signs at ED presentation significant for tachycardia and tachypnea with heart rate and rate of breathing up to the 1 teens and 30s, respectively. Labs significant for lack of leukocytosis cysts with WBC 8.9. Debbie, influenza A& B, all negative. D-dimer elevated to 1.81. Serum creatinine level 2.0 with baseline 1.4. Serum BNP 68565. Preliminary result of the chest x-ray showing bilateral pulmonary edema. CT angiogram of the chest pending. Admission request called for CHF exacerbation. 01/25: CoVID PCR negative. On room air. UDS positive for methamphetamine, benzodiazepine, and marijuana. No other major overnight events. c/o improving degree of shortness of breath. c/o nonproductive cough. Denies wheezing. Denies chest pain or palpitation. Denies fever, chills, or sweating. c/o general body weakness. Pending 2D echocardiogram reports. Continue IV Lasix and Lisinopril. No beta katty at time of CHF exacerbation. Physical therapy evaluation and treatment. 01/26: On 2L/min oxygen. No other major overnight events. Denies shortness of breath. c/o nonproductive cough. Denies wheezing. Denies chest pain or palpitation. Denies fever, chills, or sweating. Improving degree of general body weakness. [facility] Pending 2D echocardiogram reports. We will change Lasix from IV to 40 Mg p.o. twice daily. Continue lisinopril. No beta katty at time of CHF exacerbation. Physical therapy evaluation and treatment. Constitutional Vitals: Vital Signs Temp Pulse Resp BP Pulse Ox O2 Del Method O2 Flow Rate 36.6 C 101 H 20 117/90 97 2 01/26/22 08:01 01/26/22 08:01 01/26/22 10:02 01/26/22 10:02 01/26/22 10:02 01/26/22 04:01 01/26/22 04:01 Period Temp Pulse Resp BP Sys/[place] Pulse Ox O2 Del Method O2 Flow Rate Last 24 Hr 36.2 C-37.0 C 42-122 10-30 117-160/81-120 88-99 Nasal Cannula- Room Air 2-2 Intake and Output 01/25/22 01/26/22 01/26/22 19:59 03:59 11:59 Intake Total 240 360 Output Total 300 200 675 Balance -60 160 -675 Weight 82.645 kg Intake & Output: Intake & Output 01/25/22 01/26/22 01/26/22 19:59 03:59 11:59 Intake Total 240 360 Output Total 300 200 675 Balance -60 160 -675 Weight 82.645 kg Intake: Oral 240 360 Output: Void Amount 300 200 675 Other: Meal Dinner Breakfast Percent of Meal Consumed 100% 100% Feeding Ability Independent Independent Urine Appearance Clear Clear Clear Urine Color Pale Yellow Bright Yellow Urine Odor Normal Normal Head Head exam: Present atraumatic and normal inspection Eye Eye exam: Present normal appearance ENT ENT exam: Present mucous membranes moist, normal exam and normal external ear exam Additional comments: Nasal cannula in place Neck Neck exam: Present normal inspection Respiratory Respiratory exam: Present normal respiratory exam Cardiovascular Cardiovascular exam: Present normal rate and rhythm GI/Abdominal GI/Abdominal exam: Present normal bowel sounds Extremities Exam Extremities exam: Present pedal edema Back Exam Back exam: Present normal inspection Neurological Exam Neurological exam: Present alert and oriented X3 Skin Skin exam: Present intact and warm OBJ DATA Labs CBC & Chem 7: 01/26/22 05:35 01/26/22 05:35 Labs: Abnormal Lab Results 01/26/22 01/26/22 01/25/22 05:35 05:35 05:01 RBC Hgb Hct POC Hct Lymph # (Auto) [place] # (Auto) 0.97 H D-Dimer POC Chloride POC BUN BUN 31 H 27 H Creatinine 2.2 H 2.0 H POC Creatinine NT-Pro-B Natriuret Pep Ur Amphetamines Screen U Benzodiazepines Scrn U Marijuana (THC) Screen 01/25/22 01/24/22 01/24/22 05:01 17:54 16:57 RBC 4.03 L Hgb 12.1 L Hct 36.1 L POC Hct 34.0 L Lymph # (Auto) 1.40 L [place] # (Auto) D-Dimer POC Chloride 112 H POC BUN 29 H BUN Creatinine POC Creatinine 2.0 H NT-Pro-B Natriuret Pep Ur Amphetamines Screen Suspect positive A U Benzodiazepines Scrn Suspect positive A U Marijuana (THC) Screen Suspect positive A 01/24/22 01/24/22 01/24/22 16:56 16:56 16:56 RBC 3.90 L Hgb 11.5 L Hct 34.6 L POC Hct Lymph # (Auto) [place] # (Auto) D-Dimer 1.81 H POC Chloride POC BUN BUN Creatinine POC Creatinine NT-Pro-B Natriuret Pep 34147.0 H Ur Amphetamines Screen U Benzodiazepines Scrn U Marijuana (THC) Screen Meds: Medications Acetaminophen (Acetaminophen 325 Mg Tablet) 650 mg PO Q6HP PRN; Protocol PRN Reason: Per Pain Protocol/Fever > 101 Last Admin: 01/25/22 09:42 Dose: 650 mg Albuterol/Ipratropium (Ipratropium/Albuterol 3 Ml Ampul.Neb) 3 ml NEB Q4HRT PRN PRN Reason: Wheezing Allopurinol (Allopurinol 100 Mg Tablet) 200 mg PO HS [facility] Last Admin: 01/25/22 20:58 Dose: 200 mg Atorvastatin Calcium (Atorvastatin 20 Mg Tablet) 20 mg PO HS TIMO Last Admin: 01/25/22 21:09 Dose: 20 mg Docusate Sodium (Docusate Sodium 100 Mg Capsule) 100 mg PO BID TIMO Last Admin: 01/26/22 08:55 Dose: 100 mg Furosemide (Furosemide 40 Mg Tablet) 40 mg PO BIDD TIMO Heparin Sodium (Porcine) (Heparin 5,000 Unit/Ml Vial) 5,000 unit SQ Q12 [facility] Last Admin: 01/26/22 08:55 Dose: 5,000 unit Hydralazine HCl (Hydralazine 20 Mg/Ml Vial) 10 mg IV Q4-6HP PRN PRN Reason: Hypertension Last Admin: 01/25/22 07:28 Dose: 10 mg Lactulose (Lactulose 20 Gm/30 Ml Oral.Angelika) 10 gm PO DAILYP PRN PRN Reason: Constipation Lisinopril (Lisinopril 20 Mg Tablet) 20 mg PO [facility] Last Admin: 01/25/22 20:57 Dose: 20 mg Metoprolol Tartrate (Metoprolol Tartrate 5 Mg/5 Ml Vial) 5 mg IV Q5M PRN PRN Reason: Tachyarrhythmias Nitroglycerin (Nitroglycerin 0.4 Mg Tab.Subl) 0.4 mg SL Q5M PRN PRN Reason: Chest Pain Omeprazole (Omeprazole 20 Mg Capsule) 20 mg PO BID [facility] Last Admin: 01/26/22 08:55 Dose: 20 mg Ondansetron HCl (Ondansetron 4 Mg/2 Ml Vial) 4 mg IV Q4HP PRN; Protocol PRN Reason: Nausea And Vomiting Potassium Chloride (Potassium Chloride 10 Meq Tablet) 10 meq PO [facility] Last Admin: 01/25/22 20:57 Dose: 10 meq Senna (Sennosides 1 Tablet) 2 tab PO HSP PRN PRN Reason: Constipation Sodium Chloride (0.9 % Sodium Chloride 10 Ml Syringe) 10 ml IV Q8 [facility] Last Admin: 01/26/22 05:40 Dose: 10 ml A/P Assessment and plan (1) CHF exacerbation: Status: Acute (2) Methamphetamine abuse: Status: Acute (3) HTN (hypertension): Status: Acute (4) Acute on chronic kidney failure: Status: Acute (5) Gout: Status: Acute (6) Anemia, normocytic normochromic: Status: Acute Narrative A/P Narrative: Assessment and Plans: 1. Congestive heart failure with exacerbation: Inpatient med surg with telemetry Strict intake and output measurement Daily weigh 2L/day fluid restriction Lasix 40mg IV-->PO BID No beta katty at time of exacerbation Lisinopril Supplemental oxygen therapy as needed titrate to achieve spo2>=92% 2D echocardiogram, reports pending CoVID PCR negative Physical therapy evaluation and treatment 2. h/o methamphetamine abuse: Urine drug screen: positive for methamphetamine, benzodiazepine, and marijuana 3. h/o essential hypertension: Lasix 40mg IV-->PO BID No beta katty at time of exacerbation Lisinopril Hydralazine 10mg IV q4-6hr PRN SBP>=180 and/or DBP>=110mmHg 4. Gout: Continue allopurinol 5. Acute on chronic kidney injury: Avoid nephrotoxic agents Saline lock with PO diuretics CMP in the morning to trend kidney functions 6. Anemia, normocytic normochromic: cbc w/ auto diff in the morning to trend H/H GI ppx: Prilosec DVT ppx: Heparin Code status: Full Prognosis: Stable Disposition: inpatient med surg; PT Time Spent With Patient Time: Total time spent is greater than 50% in coordination of care (as documented) at patient's floor/unit and/or counseling patient: Total time spent with greater than 50% in coordination of care (as documented) at patient's floor/unit and/or counseling patient:: 25 - 35 minutes
[2022-01-26] MEDS: FUROSEMIDE 40 MG TABLET PO SCH (16:00)
[2022-01-26] MEDS: ATORVASTATIN 20 MG TABLET PO SCH (20:27)
[2022-01-26] MEDS: ALLOPURINOL 100 MG TABLET PO SCH (20:27)
[2022-01-26] MEDS: POTASSIUM CHLORIDE 10 MEQ TABLET PO SCH (20:28)
[2022-01-26] MEDS: ACETAMINOPHEN 325 MG TABLET PO PRN (20:28)
[2022-01-26] MEDS: LISINOPRIL 20 MG TABLET PO SCH (20:28)
[2022-01-27] MEDS: 0.9 % SODIUM CHLORIDE 10 ML SYRINGE IV SCH (05:33)
[2022-01-27 07:02] LABS: Basophils # (Auto) 0.01 K/mcL (0.00-0.30); Basophils % (Auto) 0.1 % (0.0-2.0); Eosinophils # (Auto) 0.26 K/mcL (0.00-0.70); Eosinophils % (Auto) 2.7 % (0.0-7.0); Hematocrit 43.1 % (40.1-51.0); Hemoglobin 14.3 g/dL (13.7-17.5); Lymphocytes # (Auto) 2.45 K/mcL (1.50-4.80); Lymphocytes % (Auto) 25.3 % (15.5-49.0); Mean Cell Volume 88.7 fL (80.0-100.0); Mean Corpuscular HGB Conc 33.2 g/dL (31.0-36.0); Mean Platelet Volume 10.3 fL (8.8-12.5); Monocytes # (Auto) 0.81 K/mcL (0.10-0.90); Monocytes % (Auto) 8.4 % (1.0-12.0); Neutrophils % (Auto) 63.2 % (38.0-78.0); Platelet Count 281 K/mcL (140-440); RBC 4.86 M/mcL (4.63-6.08); Red Cell Distribution Width 13.8 % (11.5-14.5); WBC 9.7 K/mcL (4.5-11.0)
[2022-01-27 07:26] LABS: ALT/SGPT 9 U/L (<40); AST/SGOT 13 U/L (<40); Albumin 3.9 gm/dL (3.2-5.2); Albumin/Globulin Ratio 1.2 (1.0-2.3); Alkaline Phosphatase 83 U/L (39-117); Bilirubin,Total 0.3 mg/dL (0.1-1.0); Blood Urea Nitrogen 34 mg/dL (8-23); Calcium 9.6 mg/dL (8.6-10.4); Carbon Dioxide 24 mmol/L (22-30); Chloride 100 mmol/L (96-108); Globulin 3.3 gm/dL (2.2-3.7); Glomerular Filtration Rate 32; Glucose 96 mg/dL (70-105)
--- NOTE | 2022-01-27 07:30 | EKG ---
[facility] Minor Care Test Date: 2022-01-24 Pat Name: Manas Page Department: ED Room: Gender: Male Director Of Patient Care: [id number] : 1955 Requested By: Ish Retana Order Number: [id number] Reading MD: Ruddy Soliman Measurements Intervals [place] Rate: 106 P: 21 PA: 178 QRS: 57 QRSD: 89 T: -82 QT: 339 QTc: 451 Interpretive Statements Sinus tachycardia T wave abnormality Electronically Signed On 01-27-2022 7:29:48 PST by Ruddy Soliman /store/M0/[id number].pdf
[2022-01-27] MEDS: DOCUSATE SODIUM 100 MG CAPSULE PO SCH (08:12)
[2022-01-27] MEDS: HEPARIN 5,000 UNIT/ML VIAL SQ SCH (08:12)
[2022-01-27] MEDS: FUROSEMIDE 40 MG TABLET PO SCH (08:12)
[2022-01-27] MEDS: OMEPRAZOLE 20 MG CAPSULE PO SCH (08:13)
[2022-01-27] MEDS: METOPROLOL TARTRATE 5 MG/5 ML VIAL IV PRN (09:54)
--- NOTE | 2022-01-27 14:19 | Discharge Summary ---
Discharge Provider Provider IMPORTANT FOLLOW-UP INFORMATION FOR PCP: Patient information: Note initiated : 01/27/22 at 2:16 pm Service Date, if different from initiated Date: [] Patient: Manas Page 67 y/o M admitted on 01/24/22 for Shortness of breath-CHF Exacerbation. Chief Complaint: [] Date of admission: 01/24/22 23:45 Discharge date: 01/27/22 Primary care physician: Alphonse Espinoza DO Attending physician on admission: Davian Bello Consults: 01/24/22 Consult to Physician [CONS] Stat Comment: Consulting Provider: Davian Bello Reason For Exam: Physician to Consult Attending physician on discharge: Davian Bello COURSE Hospital Course Hospital course: Mr. Page is a 66 year old M history of essential hypertensions, gout, chronic kidney disease stage III, methamphetamine abuse, presenting with 3-week history of gradual onset, gradually worsening shortness of breath. He admits to be snoring methamphetamine up until a week ago. He does not have any history of heart attack or heart failure. Over the past 3 weeks, he has been experiencing gradual onset, gradually worsening shortness of breath accompanied with dysuria of exertions with half a block. He denies any unintentional weight gain or leg swelling. He experienced orthopnea with 2 pillows at night when he sleeps. He is also complained of nonproductive cough but denies any respiratory wheezings. He denies any chest pain or palpitations. He states that he is compliant to his medications. Vital signs at ED presentation significant for tachycardia and tachypnea with heart rate and rate of breathing up to the 1 teens and 30s, respectively. Labs significant for lack of leukocytosis cysts with WBC 8.9. Debbie, influenza A& B, all negative. D-dimer elevated to 1.81. Serum creatinine level 2.0 with baseline 1.4. Serum BNP 93702. Preliminary result of the chest x-ray showing bilateral pulmonary edema. CT angiogram of the chest pending. Admission request called for CHF exacerbation. 01/25: CoVID PCR negative. On room air. UDS positive for methamphetamine, benzodiazepine, and marijuana. No other major overnight events. c/o improving degree of shortness of breath. c/o nonproductive cough. Denies wheezing. Denies chest pain or palpitation. Denies fever, chills, or sweating. c/o general body weakness. Pending 2D echocardiogram reports. Continue IV Lasix and Lisinopril. No beta katty at time of CHF exacerbation. Physical therapy evaluation and treatment. 01/26: On 2L/min oxygen. No other major overnight events. Denies shortness of breath. c/o nonproductive cough. Denies wheezing. Denies chest pain or palpitation. Denies fever, chills, or sweating. Improving degree of general body weakness. We will downgrade the patient's from U to [facility]. Pending 2D echocardiogram reports. We will change Lasix from IV to 40 Mg p.o. twice daily. Continue lisinopril. No beta katty at time of CHF exacerbation. Physical therapy evaluation and treatment. 01/27: 2D echocardiogram showing reduced left ventricular systolic function with LVEF 40% with concurrent grade 2 diastolic dysfunctions. Patient is otherwise which clinical stability, tolerating room air, and symptoms including shortness of breath much improved. Decision made to discharge patient home with prescriptions sent to pharmacy. 1 week PCP follow-up appointment instructed. All questions were answered prior to patient being physically discharged. Discharge diagnosis: combined CHF exacerbation Time Spent with Patient Time attestation: Total time spent providing and/or coordinating discharge services: Time spent: Less than 30 minutes EXAM Constitutional Vitals: Temp Pulse Resp BP Pulse Ox O2 Del Method O2 Flow Rate 36.6 C 104 H 23 H 111/76 95 2 01/27/22 12:03 01/27/22 13:38 01/27/22 13:42 01/27/22 13:42 01/27/22 13:42 01/27/22 13:42 01/27/22 08:02 General appearance: cooperative and no acute distress Head Head exam: Present atraumatic and normocephalic Eye Eye exam: Present EOMI and PERRL ENT ENT exam: Present mucous membranes moist, normal exam and normal external ear exam Neck Neck exam: Present normal inspection; Absent lymphadenopathy, tenderness or thyromegaly Respiratory Respiratory exam: Absent accessory muscle use, respiratory distress or wheezes Cardiovascular Cardiovascular exam: Present normal rate and rhythm; Absent JVD GI/Abdominal GI/Abdominal exam: Present normal bowel sounds and soft; Absent organomegaly or tenderness Rectal Rectal exam: Present deferred Extremities Exam Extremities exam: Present full ROM, normal capillary refill and normal inspection; Absent tenderness Neurological Exam Neurological exam: Present alert, CN II-XII intact and oriented X3; Absent motor sensory deficit Psychiatric Psychiatric exam: Present normal affect and normal mood; Absent anxious or depressed Skin Skin exam: Present dry and intact Discharge Data Data Completed and Pending Labs on day of discharge: Labs from last 24 hours 01/27/22 01/27/22 05:05 05:05 WBC 9.7 RBC 4.86 Hgb 14.3 Hct 43.1 MCV 88.7 MCH 29.4 MCHC 33.2 RDW 13.8 Plt Count 281 MPV 10.3 Immature Gran % (Auto) 0.3 Neut % (Auto) 63.2 Lymph % (Auto) 25.3 Cross % (Auto) 8.4 Eos % (Auto) 2.7 Baso % (Auto) 0.1 Lymph # (Auto) 2.45 [place] # (Auto) 0.81 Eos # (Auto) 0.26 Baso # (Auto) 0.01 Immature Gran # 0.03 Absolute Neutrophils 6.12 Sodium 137 Potassium 4.3 Chloride 100 Carbon Dioxide 24 Anion Gap 13.0 BUN 34 H Creatinine 2.1 H GFR Calculation 32 Glucose 96 Calcium 9.6 Magnesium 2.3 Total Bilirubin 0.3 AST 13 ALT 9 Alkaline Phosphatase 83 Total Protein 7.2 Albumin 3.9 Globulin 3.3 Albumin/Globulin Ratio 1.2 Discharge Plan Patient/Caregiver Discharge Instructions Activity: increase activity as tolerated Diet: Cardiac Prescriptions: New furosemide 40 mg Tablet 40 mg PO BIDD 30 Days Qty: 60 1RF carvedilol [Coreg] 3.125 mg tablet 3.125 mg PO BID Qty: 60 1RF Rx Instructions: must administer with a meal/food spironolactone [Aldactone] 25 mg tablet 25 mg PO QDAY Qty: 30 0RF Continued omeprazole 20 mg capsule,delayed release(DR/EC) 20 mg PO BID atorvastatin 20 MG tablet 20 mg PO HS lisinopril 20 MG tablet 20 mg PO HS potassium chloride 10 MEQ tablet extended release 10 meq PO HS allopurinol 100 MG tablet 200 mg PO HS Discontinued chlorthalidone 25 MG tablet 25 mg PO HS Other Ambulatory Orders: Primary Care Provider - Referral (NOW) Timeframe: [id number] Location: None Selected Ordered By: Davian Bello Follow Up Plan Follow up with: Alphonse Espinoza DO [Primary Care Provider] - Patient Disposition: Home, Self-Care Rehab Potential: Good I certify that the patient requires SNF services: No Overall status at discharge: patient is back to baseline Discharge Orders: Discharge Order (Routine); Ordered 01/27/22 Ordered By: Davian Bello
--- NOTE | 2022-01-29 07:21 | EKG ---
[facility] Minor Care Test Date: 2022-01-24 Pat Name: Manas Page Department: ED Room: Gender: Male Steam Tender: valencia : 1955 Requested By: Rodríguez Winslow Order Number: [id number] Reading MD: Ruddy Soliman Measurements Intervals [place] Rate: 104 P: 47 MD: 177 QRS: 64 QRSD: 93 T: -88 QT: 359 QTc: 473 Interpretive Statements Fast sinus arrhythmia Probable LVH with secondary repol abnrm Electronically Signed On 01-29-2022 7:21:41 PST by Ruddy Soliman /store/M0/[id number]
--- NOTE | 2022-01-29 07:25 | EKG ---
[facility] Test Date: 2022-01-27 Pat Name: Manas Page Department: ICU Room: 119 Gender: Male Sales Enablement Consultant: : 1955 Requested By: Davian Bello Order Number: [id number] Reading MD: Ruddy Soliman Measurements Intervals [place] Rate: 148 P: VT: QRS: 38 QRSD: 123 T: 257 QT: 322 QTc: 506 Interpretive Statements Atrial flutter with predominant 2:1 AV block LVH with secondary repolarization abnormality Prolonged QT interval Electronically Signed On 01-29-2022 7:25:16 PST by Ruddy Soliman /store/M0/[id number]
== END 2022-01-27 15:15 | disposition home or self-care (01) | DRG 291 ==
LOC: ED 15:03 → ICU 23:45
PROVIDERS: ADMIT Internal Medicine; ATTEND Internal Medicine